=== PATIENT | female | born 1940 | race Caucasian/White ===

== ENCOUNTER 2021-01-11 00:53 | Emergency (ER) | payer MEDICARE, SELFPAY ==
--- NOTE | ~2021-01-11 | XR_ITS ---
EXAMINATION: XR CHEST CLINICAL INFORMATION: Shortness of breath COMPARISON: 04/06/2020 TECHNIQUE: Frontal view of the chest was obtained. FINDINGS: Cardiac leads overlie the chest. Elevated left hemidiaphragm. Patchy opacities are seen bilaterally. No pleural effusion or pneumothorax. The cardiomediastinal silhouette is unchanged. XR/XR chest 1V IMPRESSION: Patchy bilateral opacities are nonspecific. This could be infectious or inflammatory.
[2021-01-11 00:59] VITALS: BP 106/80; PULSE 93; RESP 17; TEMP 36.8; O2SAT 95; BMI 32.9
--- NOTE | 2021-01-11 01:13 | ECG_ITS ---
Test Reason : SOB Blood Pressure : / mmHG Vent. Rate : 086 BPM Atrial Rate : 086 BPM P-R Int : 204 ms QRS Dur : 076 ms QT Int : 428 ms P-R-T Axes : 052 116 075 degrees QTc Int : 512 ms Normal sinus rhythm with sinus arrhythmia Right axis deviation Low voltage QRS Septal infarct (cited on or before 10-DEC-2019) Abnormal ECG When compared with ECG of 13-FEB-2020 09:43, No significant change was found Referred By: Generic ED Physician Electronically Signed By:Jasmeet Swartz
[2021-01-11 02:00] VITALS: BP 102/51; PULSE 74; RESP 20; TEMP 37.1; O2SAT 96
[2021-01-11 02:07] LABS: MANUAL DIFF FLAG NO
[2021-01-11 02:08] LABS: Basophils Absolute Auto 0.1 X10*3/uL (0.0-0.2); Basophils Percent Auto 0.5 % (0-2); Eosinophils Absolute Auto 0.3 X10*3/uL (0.0-0.4); Eosinophils Percent Auto 2.5 % (0-4); Hematocrit 42.9 % (37-47); Hemoglobin 12.9 g/dl (12.0-16.0); Imm Gran Abs Auto 0.03 X10*3/uL (0.00-0.03); Imm Gran Pct Auto 0.3 % (0.0-0.4); Lymphocytes Absolute Auto 2.1 X10*3/uL (1.2-4.9); Lymphocytes Percent Auto 18.8 % (20-40); Mean Corpuscular HGB Conc 30.1 g/dl (31.0-35.0); Mean Corpuscular Volume 99.8 fL (80-98); Mean Platelet Volume 10.2 fL (9.4-12.3); Monocytes Absolute Auto 0.9 X10*3/uL (0.1-1.2); Monocytes Percent Auto 8.2 % (2-11); Neutrophils Absolute Auto 7.6 X10*3/uL (2.0-8.3); Neutrophils Percent Auto 69.7 % (45-73); Platelet Count 329 X10*3/uL (160-400); Red Cell Distribution Width 14.2 % (11.0-16.0); White Blood Count 10.9 X10*3/uL (4.8-10.8)
[2021-01-11 02:18] LABS: Prothrombin Time 11.7 SEC (10.8-13.0)
--- NOTE | 2021-01-11 02:46 | ED_ITS ---
HPI - SOB/Dyspnea General Chief Complaint: Dyspnea Stated Complaint: sob cough Time Seen by Provider: 01/11/21 01:28 Source: patient and family (Daughter) Mode of arrival: EMS History of Present Illness HPI Narrative: Is an 80-year-old female with history of COPD and is brought in by ambulance at the concern of her daughter for increasing shortness of breath and cough over the past 2 weeks, and patient states she remains an everyday smok er on home oxygen at 2 L. The daughter was concerned for having to increase the oxygen from 2-3 L though the patient denies any significant shortness of breath, chest pain/palpitations, GI symptoms, or symptoms. She states he has been in her usual state of health and denies any current complaints. Related Data Previous Rx's Medication Instructions Recorded azithromycin 250 mg PO DAILY 4 Days #4 tab 01/11/21 prednisone 40 mg PO DAILY 4 Days #8 tab 01/11/21 Allergies Allergy/AdvReac Type Severity Reaction Status Date / Time umeclidinium Allergy Unknown UNKOWN Verified 01/11/21 01:05 [From INCRUSE ELLIPTA] Review of Systems Review of Systems: Pertinent positives and negatives as stated in HPI 10 point review systems is otherwise negative. [facility] Past Medical History Source: nursing notes reviewed Medical History Acute bronchitis CHF (congestive heart failure) COPD (chronic obstructive pulmonary disease) HTN (hypertension) Social History Social History Alcohol intake: never Smoking Status: Current every day smoker Smoked in Last 30 Days: Yes Use of substances other than those prescribed or required for medical reasons: No Advance Directives: No Physical Exam Vital Signs: Vital Signs: Last Vital Signs Temp 98.7 F 01/11/21 02:00 Pulse 83 01/11/21 05:46 Resp 16 01/11/21 05:46 BP 106/49 L 01/11/21 05:46 Pulse Ox 96 01/11/21 05:46 Body Mass Index 32.9 VITAL SIGNS: Reviewed. GENERAL: Cachectic, chronically ill, in no acute distress. HEAD: Normocephalic/atraumatic EYES: PERRLA, EOMI OROPHARYNX: no oral lesions noted, posterior pharynx clear, dry mucosa NECK: Supple, no adenopathy LUNGS: Normal breath sounds. 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 ABDOMEN: Soft, non-tender, non-distended with bowel sounds. SKIN: Inspection of the skin reveals no rashes NEUROLOGIC: Alert and oriented x 4. Strength and sensation to light touch were grossly intact x 4. Course Course Course Narrative: This is an 80-year-old female with history and clinical presentation suggestive of possible CHF, COPD, viral, pneumonia etiologies for presenting symptoms but doubt cardiac ischemia. Patient received initial dose of azithromycin as well as oral steroids. On review of all investigations there is a very slight leukocytosis without evidence on chest x-ray of infiltrate, but CXR read as patchy bilateral infiltrates. Ironically, the COVID-19 is negative but suspect this is simply a testing in consistency. However, patient is not noted to be tachypneic, or short of breath on home prescribed oxygen and a walk test did not demonstrate any hypoxic events and patient was able to ambulate without clinical evidence of shortness of breath. There is no objective or clinical evidence for CHF and patient was provided with 0.5 L of normal saline IV fluids for evidence clinical mild dehydration. Of note serial troponins although showing a delta 50% increase this was discussed with Cardiology in the context of patient being completely asymptomatic and the absence of EKG changes in conjunction with underlying medical conditions such as COPD and suspected COVID-19. Patient is otherwise stable for discharge to home and recommendations follow up with the primary care provider within the next 2-3 days.. MDM - SOB/Dyspnea Lab Data Result diagrams: 01/11/21 02:03 01/11/21 02:53 Labs: Lab Results 01/11/21 01/11/21 01/11/21 Range/Units 02:02 02:02 02:03 WBC 10.9 H (4.8-10.8) X10*3/uL RBC 4.30 (4.20-5.50) X10*6/uL Hgb 12.9 (12.0-16.0) g/dl Hct 42.9 (37-47) % MCV 99.8 H (80-98) fL MCH 30.0 (27.0-33.0) pg MCHC 30.1 L (31.0-35.0) g/dl RDW 14.2 (11.0-16.0) % Plt Count 329 (160-400) X10*3/uL MPV 10.2 (9.4-12.3) fL Immature Gran % (Auto) 0.3 (0.0-0.4) % Neut % (Auto) 69.7 (45-73) % Lymph % (Auto) 18.8 L (20-40) % [place] % (Auto) 8.2 (2-11) % Eos % (Auto) 2.5 (0-4) % Baso % (Auto) 0.5 (0-2) % Lymph # (Auto) 2.1 (1.2-4.9) X10*3/uL [place] # (Auto) 0.9 (0.1-1.2) X10*3/uL Eos # (Auto) 0.3 (0.0-0.4) X10*3/uL Baso # (Auto) 0.1 (0.0-0.2) X10*3/uL Abs Immat Gran (auto) 0.03 (0.00-0.03) X10*3/uL Absolute Neuts (auto) 7.6 (2.0-8.3) X10*3/uL Absolute Nucleated RBC 0.000 (0.0-0.012) X10*3/uL Nucleated RBC % (auto) 0.0 (0.0-0.2) /100WBC PT (10.8-13.0) SEC INR (0.9-1.1) Sodium Potassium Chloride Carbon Dioxide Anion Gap BUN Creatinine Estim Creat Clear Calc Estimated GFR Random Glucose Calcium Total Bilirubin AST ALT Alkaline Phosphatase Troponin I High Sens 33.2 H (<3.5-17.0) ng/L B-Natriuretic Peptide 70 (<100) pg/mL Total Protein Albumin Lipase Coronavirus (PCR) NEGATIVE (Negative) Influenza Type A (PCR) NEGATIVE (Negative) Influenza Type B (PCR) NEGATIVE (Negative) RSV RNA Qual (PCR) NEGATIVE (Negative) 01/11/21 01/11/21 01/11/21 Range/Units 02:03 02:53 02:53 WBC (4.8-10.8) X10*3/uL RBC (4.20-5.50) X10*6/uL Hgb (12.0-16.0) g/dl Hct (37-47) % MCV (80-98) fL MCH (27.0-33.0) pg MCHC (31.0-35.0) g/dl RDW (11.0-16.0) % Plt Count (160-400) X10*3/uL MPV (9.4-12.3) fL Immature Gran % (Auto) (0.0-0.4) % Neut % (Auto) (45-73) % Lymph % (Auto) (20-40) % [place] % (Auto) (2-11) % Eos % (Auto) (0-4) % Baso % (Auto) (0-2) % Lymph # (Auto) (1.2-4.9) X10*3/uL [place] # (Auto) (0.1-1.2) X10*3/uL Eos # (Auto) (0.0-0.4) X10*3/uL Baso # (Auto) (0.0-0.2) X10*3/uL Abs Immat Gran (auto) (0.00-0.03) X10*3/uL Absolute Neuts (auto) (2.0-8.3) X10*3/uL Absolute Nucleated RBC (0.0-0.012) X10*3/uL Nucleated RBC % (auto) (0.0-0.2) /100WBC PT 11.7 (10.8-13.0) SEC INR 1.0 (0.9-1.1) Sodium Cancelled 142 Potassium Cancelled 3.7 Chloride Cancelled 99 Carbon Dioxide Cancelled 34 H Anion Gap Cancelled 13 BUN Cancelled 18 H Creatinine Cancelled 1.34 Estim Creat Clear Calc Cancelled 39.7 Estimated GFR Cancelled 38 Random Glucose Cancelled 117 H Calcium Cancelled 8.6 Total Bilirubin Cancelled 0.5 AST Cancelled 9 ALT Cancelled < 6 Alkaline Phosphatase Cancelled 82 Troponin I High Sens (<3.5-17.0) ng/L B-Natriuretic Peptide (<100) pg/mL Total Protein Cancelled 6.4 L Albumin Cancelled 3.5 Lipase Cancelled 24 Coronavirus (PCR) (Negative) Influenza Type A (PCR) (Negative) Influenza Type B (PCR) (Negative) RSV RNA Qual (PCR) (Negative) 01/11/21 Range/Units 05:04 WBC (4.8-10.8) X10*3/uL RBC (4.20-5.50) X10*6/uL Hgb (12.0-16.0) g/dl Hct (37-47) % MCV (80-98) fL MCH (27.0-33.0) pg MCHC (31.0-35.0) g/dl RDW (11.0-16.0) % Plt Count (160-400) X10*3/uL MPV (9.4-12.3) fL Immature Gran % (Auto) (0.0-0.4) % Neut % (Auto) (45-73) % Lymph % (Auto) (20-40) % [place] % (Auto) (2-11) % Eos % (Auto) (0-4) % Baso % (Auto) (0-2) % Lymph # (Auto) (1.2-4.9) X10*3/uL [place] # (Auto) (0.1-1.2) X10*3/uL Eos # (Auto) (0.0-0.4) X10*3/uL Baso # (Auto) (0.0-0.2) X10*3/uL Abs Immat Gran (auto) (0.00-0.03) X10*3/uL Absolute Neuts (auto) (2.0-8.3) X10*3/uL Absolute Nucleated RBC (0.0-0.012) X10*3/uL Nucleated RBC % (auto) (0.0-0.2) /100WBC PT (10.8-13.0) SEC INR (0.9-1.1) Sodium Potassium Chloride Carbon Dioxide Anion Gap BUN Creatinine Estim Creat Clear Calc Estimated GFR Random Glucose Calcium Total Bilirubin AST ALT Alkaline Phosphatase Troponin I High Sens 51.0 H D (<3.5-17.0) ng/L B-Natriuretic Peptide (<100) pg/mL Total Protein Albumin Lipase Coronavirus (PCR) (Negative) Influenza Type A (PCR) (Negative) Influenza Type B (PCR) (Negative) RSV RNA Qual (PCR) (Negative) ECG Data Attestation: I personally reviewed and interpreted this ECG as follows: Prior ECG tracings: available for review (02/13/2020 no acute changes on comparison) Interpretation: Normal sinus rhythm, HR-86, no evidence of acute ischemia, QRS within normal limits Discharge Plan Discharge Clinical Impression: COPD with acute bronchitis Patient Disposition: Home, Self-Care Instructions: COPD (Chronic Obstructive Pulmonary Disease) (ED), Viral Syndrome (ED) Additional Instructions: 1. Please resume all home medications as prescribed. 2. Recommend using [id number] cough suppressant medications as directed on the outside packaging. In addition, may use [id number] Tylenol and/or ibuprofen as directed only outside packaging. 3. Please follow-up with patient's primary care provider within the next 2-3 days for re-evaluation. Do not hesitate to return to the emergency department should you experience any acute worsening of your symptoms. Prescriptions: New prednisone 20 mg tablet 40 mg PO DAILY 4 Days Qty: 8 RF: 0 azithromycin 250 mg tablet 250 mg PO DAILY 4 Days Qty: 4 RF: 0 Referrals: Physician,Unknown [Primary Care Provider] - 2 days
[2021-01-11 02:47] LABS: Influenza A PCR NEGATIVE (Negative); Influenza B PCR NEGATIVE (Negative); Resp Syncy Virus RNA Qual PCR NEGATIVE (Negative); SARS COV2 PCR INHOUSE NEGATIVE (Negative); Troponin-I High Sensitivity 33.2 ng/L (<3.5-17.0)
[2021-01-11 03:04] VITALS: BP 115/49; PULSE 79; RESP 18; O2SAT 97
[2021-01-11 03:27] LABS: Alanine Aminotransferase < 6 U/L (0-31); Albumin Level 3.5 g/dL (3.5-5.0); Alkaline Phosphatase 82 U/L (39-117); Anion Gap 13 (12-20); Aspartate Amino Transferase 9 U/L (5-31); Bilirubin Total 0.5 mg/dL (0.0-1.0); Blood Urea Nitrogen 18 mg/dL (9-16); Calcium 8.6 mg/dL (8.4-10.2); Carbon Dioxide 34 mmol/L (22-29); Chloride 99 mmol/L (96-108); Creatinine Clr Calc Pharmacy 39.7; Estimated Glomerular Filt Rate 38; Glucose Random 117 mg/dL (60-115); Lipase 24 U/L (8-78); Potassium 3.7 mmol/L (3.3-5.1); Sodium 142 mmol/L (135-145); Total Protein 6.4 g/dL (6.5-8.0)
--- NOTE | 2021-01-11 03:46 | PC.NURSE ---
patient o2 via nasal cannula is 2l which patient wears at home. patient doing well and o2 sat is 98% with non productive cough present at times.
[2021-01-11] MEDS: 0.9 % Sodium Chloride 500 ML 999 ML IV (03:58)
[2021-01-11 04:00] VITALS: BP 106/66; PULSE 62; RESP 16; O2SAT 99
[2021-01-11 04:12] LABS: B Type Natriuretic Peptide 70 pg/mL (<100)
[2021-01-11] MEDS: predniSONE 10 MG TABLET 50 MG PO (05:44)
[2021-01-11] MEDS: Azithromycin 500 MG TABLET PO (05:44)
[2021-01-11 05:46] VITALS: BP 106/49; PULSE 83; RESP 16; O2SAT 96
--- NOTE | 2021-01-11 06:43 | PC.NURSE ---
PROVIDER CONTACTING CARDIOLOGY, WHO IS AWARE OF PATIENT AND THAT THE PLAN OF CARE WILL REMAIN PATIENT HEADING HOME. CONTACTING PATIENTS DAUGHTER FOR A RIDE HOME, EXPLAINING PLAN OF CARE AND DISCHARGE TEACHING TO DAUGHTER. PATIENT VERBALIZED UNDERSTANDING OF D/C INSTRUCTIONS WELL. URINE SAMPLE WAS ATTEMPTED TO BE OBTAINED. PATIENT UNABLE TO GIVE A SAMPLE AT THIS TIME, PROVIDER AWARE.
== END 2021-01-11 07:53 | disposition home or self-care (01) ==
PROVIDERS: Emergency Provider Student in an Organized Health Care Education/Training Program
DX: J44.9 Chronic obstructive pulmonary disease, unspecified (principal); Z99.81 Dependence on supplemental oxygen; Z20.822 Contact with and (suspected) exposure to COVID-19; F17.210 Nicotine dependence, cigarettes, uncomplicated; I11.0 Hypertensive heart disease with heart failure; I50.9 Heart failure, unspecified
CPT/HCPCS: 0241U; 36415; 71045; 80053; 83690; 83880; 84484; 85025; 85610; 93005; 99284

== ENCOUNTER 2021-04-24 07:25 | Emergency (ER) | payer MEDICARE, SELFPAY ==
--- NOTE | ~2021-04-24 | CT_ITS ---
EXAMINATION: CT BRAIN AND CT CERVICAL SPINE WITHOUT CONTRAST. CLINICAL INFORMATION: Fall. COMPARISON: None TECHNIQUE: 2 mm thin axial and reformatted 2 mm thin sagittal and coronal images of brain were obtained without contrast. Axial 3 mm thin and reformatted 2 mm thin sagittal and coronal images of cervical spine were obtained without contrast. DLP 1443 FINDINGS: Brain: There is significant motion artifact. There is no acute intra-axial, extra-axial bleed, masses, collection or midline shift. There is no acute infarction in evolution. The lateral ventricles are symmetrical in size and configuration with mild enlargement. The tripathi to white matter differentiation is maintained well. Bone windows reveal no calvarial abnormality. Bilateral paranasal sinuses and mastoid air cells are well aerated. Cervical spine: There is normal cervical lordosis. The vertebral heights, alignment and disc heights are normal. There is no visible acute fracture, dislocation or subluxation seen. The prevertebral and paravertebral soft tissues are normal. The craniovertebral junction and the C1-C2 alignment is normal. CT/CT head/brain wo con IMPRESSION: No acute intracranial process seen. No acute fracture, dislocation or subluxation cervical spine.
--- NOTE | ~2021-04-24 | CT_ITS ---
EXAMINATION: CT BRAIN AND CT CERVICAL SPINE WITHOUT CONTRAST. CLINICAL INFORMATION: Fall. COMPARISON: None TECHNIQUE: 2 mm thin axial and reformatted 2 mm thin sagittal and coronal images of brain were obtained without contrast. Axial 3 mm thin and reformatted 2 mm thin sagittal and coronal images of cervical spine were obtained without contrast. DLP 1443 FINDINGS: Brain: There is significant motion artifact. There is no acute intra-axial, extra-axial bleed, masses, collection or midline shift. There is no acute infarction in evolution. The lateral ventricles are symmetrical in size and configuration with mild enlargement. The tripathi to white matter differentiation is maintained well. Bone windows reveal no calvarial abnormality. Bilateral paranasal sinuses and mastoid air cells are well aerated. Cervical spine: There is normal cervical lordosis. The vertebral heights, alignment and disc heights are normal. There is no visible acute fracture, dislocation or subluxation seen. The prevertebral and paravertebral soft tissues are normal. The craniovertebral junction and the C1-C2 alignment is normal. CT/CT cervical spine wo con IMPRESSION: No acute intracranial process seen. No acute fracture, dislocation or subluxation cervical spine.
[2021-04-24 07:39] VITALS: BP 128/70; BP 131/60; PULSE 78; PULSE 84; RESP 16; TEMP 36.8; O2SAT 4; O2SAT 98; BMI 28.3
--- NOTE | 2021-04-24 08:21 | ED.GENADULT ---
HPI - General Adult General Chief complaint: Fall Stated complaint: Head pain from fall Time Seen by Provider: 04/24/21 08:28 Source: patient Mode of arrival: ambulatory Limitations: no limitations History of Present Illness HPI narrative: Patient presents to the ED for fall. Patient stated she was walking to the bathroom with her walker and lost her balance and fell. Patient denies loss of consciousness. Patient is not any blood thinner. Patient denies having any chest pain, abdominal pain, headache, or dizziness before falling. Patient states she just loss her footing/lost balance. Patient states slight headache. Patient denies any chest pain, abdominal pain, pain in extremities, back pain, neck pain, dizziness, nausea, or vomiting. Patient states she did not pass out. Related Data Previous Rx's Medication Instructions Recorded azithromycin 250 mg PO DAILY 4 Days #4 tab 01/11/21 prednisone 40 mg PO DAILY 4 Days #8 tab 01/11/21 Allergies Allergy/AdvReac Type Severity Reaction Status Date / Time umeclidinium Allergy Unknown UNKOWN Verified 01/11/21 01:05 [From INCRUSE ELLIPTA] Review of Systems Review of Systems: Yes all other systems are reviewed and are negative Constitutional: Constitutional: Reports as per HPI, Reports no additional constitutional complaints and Reports headache(s) Eyes: Eyes: Reports as per HPI and Reports no additional eye complaints ENT: Reports system reviewed and no additional complaints, except as documented, Reports as per HPI and Reports headache(s) Cardiovascular: Cardiovascular: Reports as per HPI and Reports no additional cardiovascular complaints Respiratory: Respiratory: Reports as per HPI and Reports no additional respiratory complaints Gastrointestinal: Gastrointestinal: Reports as per HPI and Reports no additional gastrointestinal complaints Genitourinary: Genitourinary: Reports no additional female genitourinary complaints and Reports as per HPI Musculoskeletal: Musculoskeletal: Reports no additional musculoskeletal complaints and Reports as per HPI Neurologic: Reports system reviewed and no additional complaints, except as documented, Reports as per HPI and Reports headache(s) Psychiatric: Psychiatric: Reports no additional psychiatric complaints and Reports as per HPI PMF Past Medical History Medical History Acute bronchitis CHF (congestive heart failure) COPD (chronic obstructive pulmonary disease) HTN (hypertension) Social History Social History Alcohol intake: never Patient Tobacco Use Status: Never used Tobacco Use of substances other than those prescribed or required for medical reasons: No Advance Directives: Yes Advance Directives Information Provided: No Advance Directives on File: No Physical Exam Vital Signs: Vital Signs: Last Vital Signs Temp 98.1 F 04/24/21 10:31 Pulse 82 04/24/21 10:31 Resp 16 04/24/21 10:31 BP 128/75 04/24/21 10:31 Pulse Ox 95 04/24/21 10:31 Body Mass Index 28.3 Const: General: cooperative, healthy appearing, comfortable, no acute distress, well developed, alert and awake Orientation/consciousness: patient oriented x3 HENMT: Other: Mild right temporal tenderness/small hematoma. Head: Yes normal to inspection, Yes No palpable skull fracture present, Yes normocephalic, Yes atraumatic, No abrasion, No Acrocyanosis present, No Burgos's sign, No contusion, No cranial bruits, No hematoma, No laceration, No occipital foramen tenderness, No palpable skull fracture, No raccoon eyes, No scalp lesion, No scalp tenderness, No Temporal artery tenderness present and No periorbital ecchymosis Eyes: General: appearance normal, both eyes and all related structures Neck: Neck: Yes normal visual inspection, Yes full ROM, Yes no lymphadenopathy, Yes no meningeal signs, Yes trachea midline, Yes supple and No tender Chest: Other: Negative ecchymosis Chest palpation & inspection: normal inspection of the chest and normal palpation of entire chest wall Resp: Effort & Inspection: normal respiratory effort and able to speak in complete sentences Cardio: Jugular venous distension: no JVD Heart sounds: S1 normal heart sound present and S2 normal heart sound present GI: Inspection: Yes normal to inspection and No abdominal wall ecchymosis Palpation (GI): Soft to palpation, not firm, nontender, no guarding and not rigid : General: No CVA tenderness and Yes no CVA tenderness Back/Spine/Pelvis: Back: no CVA tenderness, No CVA tenderness and No back tenderness Skin: General skin exam: no rashes or lesions noted and elasticity normal Neuro: General: patient oriented x3, gait normal, no meningeal signs and CN's II-XI intact bilaterally Cranial nerves: Yes CN's II-XII intact bilaterally Extrem: General: Yes normal to inspection and Yes full ROM Psych: Appearance: grossly normal, well kempt and not disheveled Course Course Course Narrative: Patient neck not able to fit in a hard collar. Patient placed in soft collar make shift with towel around neck. Due to patient states she lost her balance will do cardiac workup including labs. Patient able to ambulate with walker at home which is her baseline Reevaluation(s) Reevaluation #1: Patient labs normal. EKG negative STEMI. First troponin is negative. Rest of labs are normal. Reevaluation #2: Patient's 2nd troponin came back negative. Patient head CT and cervical scan came back negative for any fracture of the scalp, brain bleed, or cervical spine fracture. I saw patient walk on her own with walker. Patient discharged back home into daughter's care. Medical Decision Making MDM Narrative Medical decision making narrative: Fall. Lab Data Result diagrams: 04/24/21 08:32 04/24/21 08:32 Labs: Lab Results 04/24/21 04/24/21 04/24/21 Range/Units 08:32 08:32 08:32 WBC 8.5 (4.8-10.8) X10*3/uL RBC 3.58 L (4.20-5.50) X10*6/uL Hgb 11.0 L (12.0-16.0) g/dl Hct 35.9 L (37-47) % MCV 100.3 H (80-98) fL MCH 30.7 (27.0-33.0) pg MCHC 30.6 L (31.0-35.0) g/dl RDW 14.0 (11.0-16.0) % Plt Count 250 (160-400) X10*3/uL MPV 10.1 (9.4-12.3) fL Immature Gran % (Auto) 0.4 (0.0-0.4) % Neut % (Auto) 64.8 (45-73) % Lymph % (Auto) 22.2 (20-40) % [place] % (Auto) 8.3 (2-11) % Eos % (Auto) 3.6 (0-4) % Baso % (Auto) 0.7 (0-2) % Lymph # (Auto) 1.9 (1.2-4.9) X10*3/uL [place] # (Auto) 0.7 (0.1-1.2) X10*3/uL Eos # (Auto) 0.3 (0.0-0.4) X10*3/uL Baso # (Auto) 0.1 (0.0-0.2) X10*3/uL Abs Immat Gran (auto) 0.03 (0.00-0.03) X10*3/uL Absolute Neuts (auto) 5.5 (2.0-8.3) X10*3/uL Absolute Nucleated RBC 0.000 (0.0-0.012) X10*3/uL Nucleated RBC % (auto) 0.0 (0.0-0.2) /100WBC PT 11.7 (10.8-13.0) SEC INR 1.0 (0.9-1.1) APTT 29.9 (24.1-38.0) SEC Sodium 143 (135-145) mmol/L Potassium 3.5 (3.3-5.1) mmol/L Chloride 97 (96-108) mmol/L Carbon Dioxide 39 H (22-29) mmol/L Anion Gap 11 L (12-20) BUN 17 H (9-16) mg/dL Creatinine 1.30 (0.5-1.4) mg/dL Estim Creat Clear Calc 37.4 Estimated GFR 39 Random Glucose 85 (60-115) mg/dL Calcium 8.8 (8.4-10.2) mg/dL Total Bilirubin 0.3 (0.0-1.0) mg/dL AST 7 (5-31) U/L ALT < 6 (0-31) U/L Alkaline Phosphatase 84 (39-117) U/L Troponin I High Sens (<3.5-17.0) ng/L Total Protein 5.9 L (6.5-8.0) g/dL Albumin 3.4 L (3.5-5.0) g/dL 04/24/21 04/24/21 Range/Units 08:32 11:32 WBC (4.8-10.8) X10*3/uL RBC (4.20-5.50) X10*6/uL Hgb (12.0-16.0) g/dl Hct (37-47) % MCV (80-98) fL MCH (27.0-33.0) pg MCHC (31.0-35.0) g/dl RDW (11.0-16.0) % Plt Count (160-400) X10*3/uL MPV (9.4-12.3) fL Immature Gran % (Auto) (0.0-0.4) % Neut % (Auto) (45-73) % Lymph % (Auto) (20-40) % [place] % (Auto) (2-11) % Eos % (Auto) (0-4) % Baso % (Auto) (0-2) % Lymph # (Auto) (1.2-4.9) X10*3/uL [place] # (Auto) (0.1-1.2) X10*3/uL Eos # (Auto) (0.0-0.4) X10*3/uL Baso # (Auto) (0.0-0.2) X10*3/uL Abs Immat Gran (auto) (0.00-0.03) X10*3/uL Absolute Neuts (auto) (2.0-8.3) X10*3/uL Absolute Nucleated RBC (0.0-0.012) X10*3/uL Nucleated RBC % (auto) (0.0-0.2) /100WBC PT (10.8-13.0) SEC INR (0.9-1.1) APTT (24.1-38.0) SEC Sodium (135-145) mmol/L Potassium (3.3-5.1) mmol/L Chloride (96-108) mmol/L Carbon Dioxide (22-29) mmol/L Anion Gap (12-20) BUN (9-16) mg/dL Creatinine (0.5-1.4) mg/dL Estim Creat Clear Calc Estimated GFR Random Glucose (60-115) mg/dL Calcium (8.4-10.2) mg/dL Total Bilirubin (0.0-1.0) mg/dL AST (5-31) U/L ALT (0-31) U/L Alkaline Phosphatase (39-117) U/L Troponin I High Sens < 3.5 < 3.5 (<3.5-17.0) ng/L Total Protein (6.5-8.0) g/dL Albumin (3.5-5.0) g/dL ECG Data Interpretation: Sinus to be 1st degree block. Your interval 238. QRS 88. QTC 469. Negative STEMI Discharge Plan Discharge Clinical Impression: Fall Patient Disposition: Home, Self-Care Instructions: Head Injury (ED), Fall Prevention (ED) Additional Instructions: Return to ED immediately for any headache, dizziness, nausea, vomiting, chest pain, shortness of breath, abdominal pain, vomiting from rectum, blood in urine, vomiting blood, or any other concerning symptoms. EKG came back normal. Blood test came back negative for heart attack. Head CT and cervical spine CT came back negative for brain bleed, skull fracture, or neck fracture. Please follow-up with your PCP Prescriptions: No Action prednisone 20 mg tablet 40 mg PO DAILY 4 Days Qty: 8 RF: 0 azithromycin 250 mg tablet 250 mg PO DAILY 4 Days Qty: 4 RF: 0 Interventions: ED Discharge Assessment Last Done: 04/24/21 14:24 Discharge Date/Time: 04/24/21 14:25 Print Language: Canadian
--- NOTE | 2021-04-24 08:28 | ECG_ITS ---
Test Reason : FALL Blood Pressure : / mmHG Vent. Rate : 071 BPM Atrial Rate : 071 BPM P-R Int : 238 ms QRS Dur : 088 ms QT Int : 432 ms P-R-T Axes : 072 107 063 degrees QTc Int : 469 ms Sinus rhythm with 1st degree A-V block Rightward axis Septal infarct (cited on or before 10-DEC-2019) Abnormal ECG When compared with ECG of 11-JAN-2021 01:20, MA interval has increased Referred By: Juwan Ayala Electronically Signed By:AMRITA LUNA
[2021-04-24 08:37] LABS: MANUAL DIFF FLAG NO
[2021-04-24 08:40] VITALS: BP 114/63; PULSE 68; RESP 16; TEMP 36.8; O2SAT 98
[2021-04-24 08:41] LABS: Basophils Absolute Auto 0.1 X10*3/uL (0.0-0.2); Basophils Percent Auto 0.7 % (0-2); Eosinophils Absolute Auto 0.3 X10*3/uL (0.0-0.4); Eosinophils Percent Auto 3.6 % (0-4); Hematocrit 35.9 % (37-47); Imm Gran Abs Auto 0.03 X10*3/uL (0.00-0.03); Imm Gran Pct Auto 0.4 % (0.0-0.4); Lymphocytes Absolute Auto 1.9 X10*3/uL (1.2-4.9); Lymphocytes Percent Auto 22.2 % (20-40); Mean Corpuscular HGB Conc 30.6 g/dl (31.0-35.0); Mean Corpuscular Hemoglobin 30.7 pg (27.0-33.0); Mean Corpuscular Volume 100.3 fL (80-98); Mean Platelet Volume 10.1 fL (9.4-12.3); Monocytes Absolute Auto 0.7 X10*3/uL (0.1-1.2); Monocytes Percent Auto 8.3 % (2-11); Neutrophils Absolute Auto 5.5 X10*3/uL (2.0-8.3); Neutrophils Percent Auto 64.8 % (45-73); Platelet Count 250 X10*3/uL (160-400); Red Blood Count 3.58 X10*6/uL (4.20-5.50); White Blood Count 8.5 X10*3/uL (4.8-10.8)
[2021-04-24 08:49] LABS: Prothrombin Time 11.7 SEC (10.8-13.0)
[2021-04-24 08:51] LABS: Partial Thromboplastin Time 29.9 SEC (24.1-38.0)
[2021-04-24 09:41] LABS: Alanine Aminotransferase < 6 U/L (0-31); Albumin Level 3.4 g/dL (3.5-5.0); Alkaline Phosphatase 84 U/L (39-117); Anion Gap 11 (12-20); Aspartate Amino Transferase 7 U/L (5-31); Bilirubin Total 0.3 mg/dL (0.0-1.0); Blood Urea Nitrogen 17 mg/dL (9-16); Calcium 8.8 mg/dL (8.4-10.2); Carbon Dioxide 39 mmol/L (22-29); Chloride 97 mmol/L (96-108); Creatinine Clr Calc Pharmacy 37.4; Estimated Glomerular Filt Rate 39; Glucose Random 85 mg/dL (60-115); Potassium 3.5 mmol/L (3.3-5.1); Sodium 143 mmol/L (135-145); Total Protein 5.9 g/dL (6.5-8.0)
[2021-04-24 09:46] LABS: Troponin-I High Sensitivity < 3.5 ng/L (<3.5-17.0)
[2021-04-24 10:31] VITALS: BP 128/75; PULSE 82; RESP 16; TEMP 36.7; O2SAT 95
--- NOTE | 2021-04-24 11:52 | PC.NURSE ---
Pt ambulatory with walker, one staff assist to stand and transition to walker. Pt fatigued quickly but was slow/steady on feet on flat surface. Daughter at bedside states she lives with patient and that transition into truck and home is difficult due to multiple steps and daughter's right wrist injury with splint. Chair van has been used for transport to/from PCP at times and will be considered at discharge from ED.
[2021-04-24 12:01] LABS: Troponin-I High Sensitivity < 3.5 ng/L (<3.5-17.0)
== END 2021-04-24 14:25 | disposition home or self-care (01) ==
PROVIDERS: Physician Assistant; Emergency Provider Emergency Medicine Emergency Medical Services
DX: S00.83XA Contusion of other part of head, initial encounter (principal); W01.0XXA Fall on same level from slipping, tripping and stumbling without subsequent striking against object, initial encounter; Y93.01 Activity, walking, marching and hiking; Y92.019 Unspecified place in single-family (private) house as the place of occurrence of the external cause; Y99.9 Unspecified external cause status; I11.0 Hypertensive heart disease with heart failure; I50.9 Heart failure, unspecified; J44.9 Chronic obstructive pulmonary disease, unspecified
CPT/HCPCS: 36415; 70450; 72125; 80053; 84484; 85025; 85610; 85730; 93005; 99284

== ENCOUNTER 2021-08-28 05:02 | Inpatient (IN) | payer MEDICARE, SELFPAY ==
[2021-08-28] VITALS (10 sets, daily range): BP systolic 100–123; BP diastolic 51–81; PULSE 65–96; RESP 15–18; TEMP 36.6–37; O2SAT 93–98; BMI 25.4
--- NOTE | ~2021-08-28 | XR_ITS ---
EXAMINATION: XR CHEST CLINICAL INFORMATION: Cough and weakness COMPARISON: 01/11/2021 TECHNIQUE: Frontal view of the chest was obtained. FINDINGS: Lung volumes are low. Mild elevation of the left hemidiaphragm persists. Left basilar airspace opacity noted. No pleural effusion or pneumothorax. The cardiomediastinal silhouette is unchanged, with a calcified aorta. No acute osseous abnormality. XR/XR chest 1V IMPRESSION: Increased left basilar opacity could represent pneumonia. Follow-up to resolution.
--- NOTE | ~2021-08-28 | CT_ITS ---
EXAMINATION: CT CHEST WITHOUT CONTRAST CLINICAL INFORMATION: Status post fall one week ago with pain and cough. COMPARISON: 02/13/[address] scan. TECHNIQUE: Multidetector volumetric CT imaging of the chest was done. Axial MIP volume rendering provided. Sagittal and coronal reformatted images were obtained. This CT examination was performed using dose optimization techniques as appropriate, variously including the following: *Automated exposure control *Adjustment of mA and/or kV according to patient size (this includes techniques or standardized protocols for targeted exams where dose is matched to indication/reason for exam; i.e. extremities or head) *Use of iterative reconstruction technique DLP: 373 mGy-cm FINDINGS: LUNGS/PLEURA/AIRWAYS: Mild upper lobe predominant centrilobular and paraseptal emphysema is seen. Mild biapical scarring. Scattered nodular opacities are seen many of which demonstrate a tree-in-bud pattern. More focal consolidation is seen peripherally in the left lower lobe at the bases. A area representative nodule measures 0.5 cm posterolaterally in the right lower lobe (image 176, series 6). Scattered mild bronchiectasis is seen most pronounced in the lower lobes, left greater than right with bronchial wall thickening. There are no pleural effusions. Mild mucus is seen within the several segmental and subsegmental branches in the right middle lobe and lung bases, left greater than right. MEDIASTINUM: The visualized thyroid gland is unremarkable. Qion-nh-rnsjenku atherosclerosis in the thoracic aorta without significant dilatation. Mild coronary artery calcifications. No pericardial effusion. Small hiatal hernia. AXILLA: No lymphadenopathy. UPPER ABDOMEN: Status post cholecystectomy. Noncalcified, fluid attenuation left upper pole cyst measuring 5.0 cm (image 60, series 8). OSSEOUS STRUCTURES: Mild thoracolumbar dextroscoliosis and mild to moderate multilevel degenerative changes without suspicious abnormality. CT/CT chest wo con IMPRESSION: 1. Bilateral nodular infiltrates most pronounced in the lower lobes, left greater than right, with bronchiectasis and bronchial wall thickening. Scattered segmental and subsegmental airway mucus is seen without obstruction. These findings represent interval worsening from the previous study and likely represent an acute on chronic infectious/inflammatory process. Short-term monitoring with chest radiographs is recommended as clinically indicated.
--- NOTE | 2021-08-28 05:22 | ECG_ITS ---
Test Reason : WEAKNESS Blood Pressure : / mmHG Vent. 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
--- NOTE | 2021-08-28 06:07 | ED.WEAKNESS ---
HPI - Weakness General Chief complaint: Weakness Stated complaint: fall/weakness Time Seen by Provider: 08/28/21 05:22 Source: patient and EMS Mode of arrival: EMS History of Present Illness HPI Narrative: 81-year-old female with significant past medical history of COPD is brought in by EMS for progressive weakness since her fall 1 week ago. Patient states she has had cough but denies any sore throat and states that she has had increased shortness of breath without chest pain or palpitations. Otherwise she denies any GI symptoms and states that she has had increased urinary frequency but denies any pain or burning. Patient has complained of back and left arm pain and lives a home with her daughter. Related Data Home Medications Medication Instructions Recorded Confirmed albuterol sulfate mg INHALATION 08/28/21 albuterol sulfate 90 mcg/actuation INHALATION 08/28/21 aerosol inhaler arformoterol 15 mcg/2 mL solution 1 vial INHALATION BID 08/28/21 for nebulization (Brovana) atorvastatin 20 mg tablet 1 tab PO DAILY 08/28/21 budesonide 0.5 mg/2 mL suspension 1 vial INHALATION BID 08/28/21 for nebulization clonazepam 0.5 mg tablet 1 tab PO TID PRN 08/28/21 gabapentin 100 mg capsule 1 cap PO TID 08/28/21 hydrocodone 5 mg-acetaminophen 325 tab PO 08/28/21 mg tablet revefenacin 175 mcg/3 mL solution 1 vial INHALATION DAILY 08/28/21 for nebulization (Yupelri) torsemide 20 mg tablet 1 tab PO BID 08/28/21 venlafaxine 75 mg capsule,extended 1 cap PO DAILY 08/28/21 release 24 hr Allergies Allergy/AdvReac Type Severity Reaction Status Date / Time umeclidinium Allergy Unknown UNKOWN Verified 01/11/21 01:05 [From INCRUSE ELLIPTA] Review of Systems Review of Systems: Pertinent positives and negatives as stated in HPI 10 point review of systems is otherwise negative. [facility] Past Medical History Source: nursing notes reviewed Medical History Acute bronchitis CHF (congestive heart failure) COPD (chronic obstructive pulmonary disease) HTN (hypertension) Social History Social History Alcohol intake: never Patient Tobacco Use Status: Never used Tobacco Use of substances other than those prescribed or required for medical reasons: No Advance Directives: No Physical Exam Vital Signs: Vital Signs: Last Vital Signs Temp 98.2 F 08/28/21 05:17 Pulse 96 08/28/21 07:42 Resp 15 08/28/21 05:17 BP 119/69 08/28/21 05:17 Pulse Ox 96 08/28/21 05:17 Oxygen Flow Rate 4 08/28/21 05:17 Body Mass Index 25.4 VITAL SIGNS: Reviewed. GENERAL: Chronically ill, cachectic, in no acute distress. HEAD: Normocephalic/atraumatic EYES: PERRLA, EOMI EARS: Ext canals without abnormality NOSE: Nares patent bilateral OROPHARYNX: no oral lesions noted, posterior pharynx clear LUNGS: Poor inspiratory effort, no wheeze, decreased breath sounds noted left greater than right with crackles, SpO2<96> on baseline nasal cannula CARDIOVASCULAR: Regular rate and rhythm without noted murmurs, no JVD or lower extremity edema. ABDOMEN: Soft, non-tender, non-distended with bowel sounds. MUSCULOSKELETAL: No tenderness, deformities, or effusions noted on gross inspection. EXTREMITIES: No cyanosis, clubbing or edema. SKIN: Inspection of the skin reveals no rashes, NEUROLOGIC: Alert and oriented x 4. Strength 3/5 bilaterally and sensation to light touch were grossly intact x 4, no pronator drift, no facial asymmetry although left lower lip noted to protrude to the left Course Course Course Narrative: 81-year-old female with history and clinical presentation suggestive pneumonia and/or possible complications secondary to fall 1 week ago and subsequent increasing deconditioning. Review of all investigations significant for COPD is well as pneumonia. Patient provided with antibiotics and case was discussed with inpatient hospitals who accepts admission. MDM - Weakness Lab Data Result diagrams: 08/28/21 05:44 08/28/21 05:44 Labs: Lab Results 08/28/21 08/28/21 08/28/21 Range/Units 05:44 05:44 05:44 WBC 13.5 H (4.8-10.8) X10*3/uL RBC 4.18 L (4.20-5.50) X10*6/uL Hgb 12.7 (12.0-16.0) g/dl Hct 42.0 (37-47) % MCV 100.5 H (80-98) fL MCH 30.4 (27.0-33.0) pg MCHC 30.2 L (31.0-35.0) g/dl RDW 14.6 (11.0-16.0) % Plt Count 260 (160-400) X10*3/uL MPV 10.6 (9.4-12.3) fL Immature Gran % (Auto) 0.4 (0.0-0.4) % Neut % (Auto) 72.6 (45-73) % Lymph % (Auto) 15.2 L (20-40) % [place] % (Auto) 9.4 (2-11) % Eos % (Auto) 2.0 (0-4) % Baso % (Auto) 0.4 (0-2) % Lymph # (Auto) 2.1 (1.2-4.9) X10*3/uL [place] # (Auto) 1.3 H (0.1-1.2) X10*3/uL Eos # (Auto) 0.3 (0.0-0.4) X10*3/uL Baso # (Auto) 0.1 (0.0-0.2) X10*3/uL Abs Immat Gran (auto) 0.05 H (0.00-0.03) X10*3/uL Absolute Neuts (auto) 9.8 H (2.0-8.3) X10*3/uL Absolute Nucleated RBC 0.000 (0.0-0.012) X10*3/uL Nucleated RBC % (auto) 0.0 (0.0-0.2) /100WBC PT (9.9-13.0) SEC INR (0.9-1.1) VBG pH (7.32-7.43) VBG pCO2 mmHg VBG pO2 mmHg VBG HCO3 (22-26) mmol/L VBG O2 Saturation % VBG Base Excess mmol/L Sodium 145 (135-145) mmol/L Potassium 3.0 L (3.3-5.1) mmol/L Chloride 92 L (96-108) mmol/L Carbon Dioxide 43 H* (22-29) mmol/L Anion Gap 13 (12-20) BUN 16 (9-16) mg/dL Creatinine 1.24 (0.5-1.4) mg/dL Estim Creat Clear Calc 36.0 Estimated GFR 42 Random Glucose 101 (60-115) mg/dL Lactic Acid (0.5-2.0) mmol/L Calcium 9.1 (8.4-10.2) mg/dL Total Bilirubin 0.5 (0.0-1.0) mg/dL AST 8 (5-31) U/L ALT < 6 (0-31) U/L Alkaline Phosphatase 107 D (39-117) U/L B-Natriuretic Peptide 49 (<100) pg/mL Total Protein 6.7 (6.5-8.0) g/dL Albumin 3.5 (3.5-5.0) g/dL COVID-19 ([facility]) (Negative) COVID-19 Clin Com 08/28/21 08/28/21 08/28/21 Range/Units 05:44 05:44 06:21 WBC (4.8-10.8) X10*3/uL RBC (4.20-5.50) X10*6/uL Hgb (12.0-16.0) g/dl Hct (37-47) % MCV (80-98) fL MCH (27.0-33.0) pg MCHC (31.0-35.0) g/dl RDW (11.0-16.0) % Plt Count (160-400) X10*3/uL MPV (9.4-12.3) fL Immature Gran % (Auto) (0.0-0.4) % Neut % (Auto) (45-73) % Lymph % (Auto) (20-40) % [place] % (Auto) (2-11) % Eos % (Auto) (0-4) % Baso % (Auto) (0-2) % Lymph # (Auto) (1.2-4.9) X10*3/uL [place] # (Auto) (0.1-1.2) X10*3/uL Eos # (Auto) (0.0-0.4) X10*3/uL Baso # (Auto) (0.0-0.2) X10*3/uL Abs Immat Gran (auto) (0.00-0.03) X10*3/uL Absolute Neuts (auto) (2.0-8.3) X10*3/uL Absolute Nucleated RBC (0.0-0.012) X10*3/uL Nucleated RBC % (auto) (0.0-0.2) /100WBC PT 11.8 (9.9-13.0) SEC INR 1.0 (0.9-1.1) VBG pH 7.41 (7.32-7.43) VBG pCO2 87 mmHg VBG pO2 38 mmHg VBG HCO3 55 H (22-26) mmol/L VBG O2 Saturation 56.0 % VBG Base Excess 24.6 mmol/L Sodium (135-145) mmol/L Potassium (3.3-5.1) mmol/L Chloride (96-108) mmol/L Carbon Dioxide (22-29) mmol/L Anion Gap (12-20) BUN (9-16) mg/dL Creatinine (0.5-1.4) mg/dL Estim Creat Clear Calc Estimated GFR Random Glucose (60-115) mg/dL Lactic Acid 1.2 (0.5-2.0) mmol/L Calcium (8.4-10.2) mg/dL Total Bilirubin (0.0-1.0) mg/dL AST (5-31) U/L ALT (0-31) U/L Alkaline Phosphatase (39-117) U/L B-Natriuretic Peptide (<100) pg/mL Total Protein (6.5-8.0) g/dL Albumin (3.5-5.0) g/dL COVID-19 ([facility]) (Negative) COVID-19 Clin Com 08/28/21 Range/Units 06:44 WBC (4.8-10.8) X10*3/uL RBC (4.20-5.50) X10*6/uL Hgb (12.0-16.0) g/dl Hct (37-47) % MCV (80-98) fL MCH (27.0-33.0) pg MCHC (31.0-35.0) g/dl RDW (11.0-16.0) % Plt Count (160-400) X10*3/uL MPV (9.4-12.3) fL Immature Gran % (Auto) (0.0-0.4) % Neut % (Auto) (45-73) % Lymph % (Auto) (20-40) % [place] % (Auto) (2-11) % Eos % (Auto) (0-4) % Baso % (Auto) (0-2) % Lymph # (Auto) (1.2-4.9) X10*3/uL [place] # (Auto) (0.1-1.2) X10*3/uL Eos # (Auto) (0.0-0.4) X10*3/uL Baso # (Auto) (0.0-0.2) X10*3/uL Abs Immat Gran (auto) (0.00-0.03) X10*3/uL Absolute Neuts (auto) (2.0-8.3) X10*3/uL Absolute Nucleated RBC (0.0-0.012) X10*3/uL Nucleated RBC % (auto) (0.0-0.2) /100WBC PT (9.9-13.0) SEC INR (0.9-1.1) VBG pH (7.32-7.43) VBG pCO2 mmHg VBG pO2 mmHg VBG HCO3 (22-26) mmol/L VBG O2 Saturation % VBG Base Excess mmol/L Sodium (135-145) mmol/L Potassium (3.3-5.1) mmol/L Chloride (96-108) mmol/L Carbon Dioxide (22-29) mmol/L Anion Gap (12-20) BUN (9-16) mg/dL Creatinine (0.5-1.4) mg/dL Estim Creat Clear Calc Estimated GFR Random Glucose (60-115) mg/dL Lactic Acid (0.5-2.0) mmol/L Calcium (8.4-10.2) mg/dL Total Bilirubin (0.0-1.0) mg/dL AST (5-31) U/L ALT (0-31) U/L Alkaline Phosphatase (39-117) U/L B-Natriuretic Peptide (<100) pg/mL Total Protein (6.5-8.0) g/dL Albumin (3.5-5.0) g/dL COVID-19 ([facility]) Negative (Negative) COVID-19 Clin Com See Note ECG Data Attestation: I personally reviewed and interpreted this ECG as follows: Prior ECG tracings: available for review (04/24/2021 no acute changes on comparison) Interpretation: Sinus rhythm with first-degree AV block, HR-79, OR-210, no STEMI, QRS/QTC are within normal limits. Discharge Plan Discharge Clinical Impression: Pneumonia, COPD exacerbation Patient Disposition: Admitted As Inpatient
[2021-08-28 06:21] LABS: Basophils Absolute Auto 0.1 X10*3/uL (0.0-0.2); Basophils Percent Auto 0.4 % (0-2); Eosinophils Absolute Auto 0.3 X10*3/uL (0.0-0.4); Hemoglobin 12.7 g/dl (12.0-16.0); Imm Gran Abs Auto 0.05 X10*3/uL (0.00-0.03); Imm Gran Pct Auto 0.4 % (0.0-0.4); Lymphocytes Absolute Auto 2.1 X10*3/uL (1.2-4.9); Lymphocytes Percent Auto 15.2 % (20-40); MANUAL DIFF FLAG NO; Mean Corpuscular HGB Conc 30.2 g/dl (31.0-35.0); Mean Corpuscular Hemoglobin 30.4 pg (27.0-33.0); Mean Corpuscular Volume 100.5 fL (80-98); Mean Platelet Volume 10.6 fL (9.4-12.3); Monocytes Absolute Auto 1.3 X10*3/uL (0.1-1.2); Monocytes Percent Auto 9.4 % (2-11); Neutrophils Absolute Auto 9.8 X10*3/uL (2.0-8.3); Neutrophils Percent Auto 72.6 % (45-73); Platelet Count 260 X10*3/uL (160-400); Red Blood Count 4.18 X10*6/uL (4.20-5.50); Red Cell Distribution Width 14.6 % (11.0-16.0); White Blood Count 13.5 X10*3/uL (4.8-10.8)
[2021-08-28 06:24] LABS: Venous Blood Gas Refer to POC result
[2021-08-28 06:26] LABS: VBG Base Excess 24.6 mmol/L; VBG HCO3 55 mmol/L (22-26); VBG pCO2 87 mmHg; VBG pH 7.41 (7.32-7.43); VBG pO2 38 mmHg
[2021-08-28 06:32] LABS: Lactic Acid 1.2 mmol/L (0.5-2.0)
[2021-08-28 06:41] LABS: B Type Natriuretic Peptide 49 pg/mL (<100); Carbon Dioxide 43 mmol/L (22-29)
[2021-08-28 06:42] LABS: Alanine Aminotransferase < 6 U/L (0-31); Albumin Level 3.5 g/dL (3.5-5.0); Alkaline Phosphatase 107 U/L (39-117); Anion Gap 13 (12-20); Aspartate Amino Transferase 8 U/L (5-31); Bilirubin Total 0.5 mg/dL (0.0-1.0); Blood Urea Nitrogen 16 mg/dL (9-16); Calcium 9.1 mg/dL (8.4-10.2); Chloride 92 mmol/L (96-108); Estimated Glomerular Filt Rate 42; Glucose Random 101 mg/dL (60-115); Sodium 145 mmol/L (135-145); Total Protein 6.7 g/dL (6.5-8.0)
[2021-08-28] MEDS: cefEPime HCl 2 GM in 0.9 % Sodium Chloride 50 ML IV (06:45)
[2021-08-28 06:47] LABS: Prothrombin Time 11.8 SEC (9.9-13.0)
[2021-08-28] MEDS: methylPREDNISolone Sod Succ 125 MG/2 ML VIAL IVPUSH (06:49)
[2021-08-28 07:26] LABS: COVID-19 Test Negative (Negative)
[2021-08-28] MEDS: Albuterol Sulfate (0.083%) 2.5 MG/3 ML VIAL.NEB 5 MG INHALE (07:39)
[2021-08-28] MEDS: cefTRIAXone sodium 1 GM in 0.9 % Sodium Chloride 50 ML IV (08:34)
[2021-08-28] MEDS: Potassium Chloride ER 20 MEQ TAB.ER.PRT 40 MEQ PO (08:35)
--- NOTE | 2021-08-28 08:55 | PHA.MEDREC ---
Pharmacy Consult ? Medication Reconciliation Pharmacy has completed the medication reconciliation. Skylar Gotti, PharmD [phone]
[2021-08-28 08:56] LABS: Procalcitonin 0.04 ng/mL
[2021-08-28] MEDS: Doxycycline Hyclate 100 MG in 0.9 % Sodium Chloride 250 ML 166.67 MG IV ×2 (09:07→20:59)
[2021-08-28 09:28] LABS: Adenovirus PCR Not Detected (Not Detect.); Bordetella parapertussis PCR Not Detected (Not Detect.); Bordetella pertussis PCR Not Detected (Not Detect.); Chlamydia pneumoniae PCR Not Detected (Not Detect.); Coronavirus 229E PCR Not Detected (Not Detect.); Coronavirus HKU1 PCR Not Detected (Not Detect.); Coronavirus NL63 PCR Not Detected (Not Detect.); Coronavirus OC43 PCR Not Detected (Not Detect.); Human metapneumovirus PCR Not Detected (Not Detect.); Influenza A PCR Not Detected (Not Detect.); Influenza B PCR Not Detected (Not Detect.); Mycoplasma pneumoniae PCR Not Detected (Not Detect.); Parainfluenza 1 PCR Not Detected (Not Detect.); Parainfluenza 2 PCR Not Detected (Not Detect.); Parainfluenza 3 PCR Not Detected (Not Detect.); Parainfluenza 4 PCR Not Detected (Not Detect.); RSV PCR Not Detected (Not Detect.); Rhino/Enterovirus PCR Not Detected (Not Detect.); SARS-CoV-2 PCR Not Detected (Not Detect.)
[2021-08-28] MEDS: Nicotine 14 MG PATCH.TD24 TRANSDERMA (10:01)
--- NOTE | 2021-08-28 10:05 | P.HPHOSP_ITS ---
History of Present Illness Date of Service: 08/28/21 Chief Complaint: weakness, cough, and dyspnea 81yo F with advanced COPD and chronic hypoxia on 4L O2 via NC, HF with unknown EF, HTN, HLD, and depression/anxiety who lives with her daughter and was brought in by EMS for worsening weakness and dyspnea with productive cough over the past 1 week. She has been increasingly somnolent as well and at this point is b asically bed-bound. No fever/chills. No chest pain. No nausea or vomiting. No sick contacts. She continues to smoke, up to a pack a day, despite using oxygen. In the ED, she was afebrile with normal HR and RR. She had mild leukocytosis. Chest imaging showed left>right lower-lobe nodule infiltrates with bronchiectasis and bronchial wall thickening and mucus without obstruction. She was given cefepime and methylprednisolone. Related Data Review of Systems Review of Systems: Yes all other systems are reviewed and are negative ON LICENSE OF [facility] Medical History (Updated 08/28/21 @ 10:15 by Genesis Obregon MD) Acute bronchitis CHF (congestive heart failure) Chronic respiratory failure with hypoxia COPD (chronic obstructive pulmonary disease) HTN (hypertension) Hyperlipidemia Tobacco abuse Functional capacity: bed bound Pertinent family history: mother had CAD Surgical History (Updated 08/28/21 @ 10:13 by Genesis Obregon MD) History of cholecystectomy History of hysterectomy Social History Alcohol intake: never Patient Tobacco Use Status: Never used Tobacco Use of substances other than those prescribed or required for medical reasons: No Advance Directives: No Meds Allergies Allergy/AdvReac Type Severity Reaction Status Date / Time umeclidinium Allergy Unknown UNKOWN Verified 01/11/21 01:05 [From INCRUSE ELLIPTA] Active Medications: Current Medications Albuterol Sulfate (Albuterol Sulfate (0.083%) 2.5 Mg/3 Ml Vial.Neb) 2.5 mg INHALE Q6H PRN PRN Reason: Shortness Of Breath Atorvastatin Calcium (Atorvastatin Calcium 20 Mg Tablet) 20 mg PO DAILY RON Enoxaparin Sodium (Enoxaparin Sodium 40 Mg/0.4 Ml Syringe) 40 mg SUBCUT Q24H SC H Gabapentin (Gabapentin 100 Mg Capsule) 100 mg PO TID RON Doxycycline Hyclate 100 mg/ (Sodium Chloride) 250 mls @ 166.67 mls/hr IV Q12H [facility] Last Admin: 08/28/21 09:07 Dose: 166.67 mls/hr Documented by: Ceftriaxone Sodium 1 gm/ (Sodium Chloride) 50 mls @ 100 mls/hr IV Q24H [facility] Last Infusion: 08/28/21 09:07 Dose: Infused Documented by: Non-Formulary Medication (Arformoterol [Brovana]) 1 vial INHALE BID [facility] Non-Formulary Medication (Budesonide) 1 vial INHALE BID [facility] Non-Formulary Medication (Revefenacin [Yupelri]) 1 vial INHALE DAILY [facility] Pharmacy Consult (Consult Rx Perform Med Rec) 1 each MISCELLANE ONCE PRN PRN Reason: Consult order Sodium Chloride (0.9 % Sodium Chloride Flush 3 Ml Syringe) 3 ml IVFLUSH QSHIFT [facility] Torsemide (Torsemide 20 Mg Tablet) 20 mg PO BID [facility]; Protocol Venlafaxine HCl (Venlafaxine Hcl Er 75 Mg Cap.Er.24h) 75 mg PO DAILY [facility] Home Medications Medication Instructions Recorded Confirmed Last Taken Type albuterol sulfate 2.5 mg INHALATION Q6H PRN 08/28/21 08/28/21 Unknown History albuterol sulfate 90 mcg/actuation 2 puff INHALATION Q4-6H PRN 08/28/21 08/28/21 Unknown History aerosol inhaler arformoterol 15 mcg/2 mL solution 1 vial INHALATION BID 08/28/21 08/28/21 Unknown History for nebulization (Brovana) atorvastatin 20 mg tablet 1 tab PO DAILY 08/28/21 08/28/21 Unknown History budesonide 0.5 mg/2 mL suspension 1 vial INHALATION BID 08/28/21 08/28/21 Unknown History for nebulization clonazepam 0.5 mg tablet 1 tab PO TID PRN 08/28/21 08/28/21 Unknown History gabapentin 100 mg capsule 1 cap PO TID 08/28/21 08/28/21 Unknown History hydrocodone 5 mg-acetaminophen 325 1 tab PO Q6H PRN 08/28/21 08/28/21 Unknown History mg tablet revefenacin 175 mcg/3 mL solution 1 vial INHALATION DAILY 08/28/21 08/28/21 Unknown History for nebulization (Yupelri) torsemide 20 mg tablet 1 tab PO BID 08/28/21 08/28/21 Unknown History venlafaxine 75 mg capsule,extended 1 cap PO DAILY 08/28/21 08/28/21 Unknown History release 24 hr Physical Exam Vital Signs and Narrative: Vital Signs: Last Vital Signs Temp 98.2 F 08/28/21 05:17 Pulse 82 08/28/21 08:42 Resp 16 08/28/21 08:42 BP 123/81 08/28/21 08:42 Pulse Ox 98 08/28/21 08:42 Oxygen Flow Rate 4 08/28/21 05:17 Body Mass Index 25.4 Gen: somnolent but arousable HEENT: sclera anicteric, moist mucus membranes, left side of mouth drooping but per daughter this is chronic and occurs whenever she sleeps Neck: supple Lungs: diminished bilaterally; coarse crackles at bases bilaterally Heart: regular rate and rhythm, no murmurs Abd: soft, non-tender, non-distended Ext: no edema Skin: warm/well-perfused Neuro: somnolent but arousable, answers questions appropriately, no focal findings Psych: appropriate affect Results Labs CBC and Chem 7: 08/28/21 05:44 08/28/21 05:44 Labs: Laboratory Results - last 24 hr 08/28/21 08/28/21 08/28/21 05:44 05:44 05:44 MCV 100.5 H MCH 30.4 MCHC 30.2 L RDW 14.6 Plt Count 260 MPV 10.6 Immature Gran % (Auto) 0.4 Neut % (Auto) 72.6 Lymph % (Auto) 15.2 L [place] % (Auto) 9.4 Eos % (Auto) 2.0 Baso % (Auto) 0.4 Lymph # (Auto) 2.1 [place] # (Auto) 1.3 H Eos # (Auto) 0.3 Baso # (Auto) 0.1 Abs Immat Gran (auto) 0.05 H Absolute Neuts (auto) 9.8 H Absolute Nucleated RBC 0.000 Nucleated RBC % (auto) 0.0 PT INR VBG pH VBG pCO2 VBG pO2 VBG HCO3 VBG O2 Saturation VBG Base Excess Anion Gap 13 Estim Creat Clear Calc 36.0 Estimated GFR 42 Random Glucose 101 Lactic Acid Calcium 9.1 Magnesium 2.0 Total Bilirubin 0.5 AST 8 ALT < 6 Alkaline Phosphatase 107 D B-Natriuretic Peptide 49 Total Protein 6.7 Albumin 3.5 Procalcitonin COVID-19 ([facility]) COVID-19 Criptext 08/28/21 08/28/21 08/28/21 05:44 05:44 05:44 MCV MCH MCHC RDW Plt Count MPV Immature Gran % (Auto) Neut % (Auto) Lymph % (Auto) [place] % (Auto) Eos % (Auto) Baso % (Auto) Lymph # (Auto) [place] # (Auto) Eos # (Auto) Baso # (Auto) Abs Immat Gran (auto) Absolute Neuts (auto) Absolute Nucleated RBC Nucleated RBC % (auto) PT 11.8 INR 1.0 VBG pH VBG pCO2 VBG pO2 VBG HCO3 VBG O2 Saturation VBG Base Excess Anion Gap Estim Creat Clear Calc Estimated GFR Random Glucose Lactic Acid 1.2 Calcium Magnesium Total Bilirubin AST ALT Alkaline Phosphatase B-Natriuretic Peptide Total Protein Albumin Procalcitonin 0.04 COVID-19 ([facility]) COVID-Quant[place] 08/28/21 08/28/21 06:21 06:44 MCV MCH MCHC RDW Plt Count MPV Immature Gran % (Auto) Neut % (Auto) Lymph % (Auto) [place] % (Auto) Eos % (Auto) Baso % (Auto) Lymph # (Auto) [place] # (Auto) Eos # (Auto) Baso # (Auto) Abs Immat Gran (auto) Absolute Neuts (auto) Absolute Nucleated RBC Nucleated RBC % (auto) PT INR VBG pH 7.41 VBG pCO2 87 VBG pO2 38 VBG HCO3 55 H VBG O2 Saturation 56.0 VBG Base Excess 24.6 Anion Gap Estim Creat Clear Calc Estimated GFR Random Glucose Lactic Acid Calcium Magnesium Total Bilirubin AST ALT Alkaline Phosphatase B-Natriuretic Peptide Total Protein Albumin Procalcitonin COVID-19 ([facility]) Negative COVID-19 Criptext See Note Imaging Radiologist's Impressions: Impressions Chest X-Ray 08/28/21 05:23 IMPRESSION: Increased left basilar opacity could represent pneumonia. Follow-up to resolution. Chest CT 08/28/21 06:28 IMPRESSION: 1. Bilateral nodular infiltrates most pronounced in the lower lobes, left greater than right, with bronchiectasis and bronchial wall thickening. Scattered segmental and subsegmental airway mucus is seen without obstruction. These findings represent interval worsening from the previous study and likely represent an acute on chronic infectious/inflammatory process. Short-term monitoring with chest radiographs is recommended as clinically indicated. Assessment and Plan (1) COPD exacerbation: Status: Acute (2) Pneumonia: Status: Acute 81yo F with advanced COPD and chronic hypoxia on 4L O2 via NC, HF with unknown EF, HTN, HLD, and depression/anxiety presenting with worsening dyspnea and productive cough and weakness over the past week. # COPD exacerbation # PNA, PSI/PORT score 81 - admit to [facility], give IV steroids, standing/prn bronchodilators, ceftriaxone/doxycycline, follow BCx + UCx + PCT # hypercarbia - seems chronic/metabolically compensated. will discuss with Pulmonology role of BiPAP and acetazolamide in this situation # chronic hypoxia - continue O2 via NC # chronic HF, unknown EF - appears euvolemic; continue maintenance torsemide # HLD - continue statin # depression/anxiety - continue venlafaxine # VTE ppx - LMWH # code - per discussion with daughter, pt is DNR/DNI Quality Stroke Does the patient have a stroke diagnosis?: No VTE Prior VTE?: No VTE Risk Level:: Medical - moderate - high VTE Device Contraindication: N/A - Device Ordered VTE Drug Contraindication: N/A - Med Ordered
[2021-08-28] MEDS: Enoxaparin Sodium 40 MG/0.4 ML SYRINGE SUBCUT (10:53)
[2021-08-28] MEDS: methylPREDNISolone Sod Succ 40 MG/ML VIAL IVPUSH ×2 (10:53→20:59)
--- NOTE | 2021-08-28 11:42 | PM.CNPUL ---
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 Patient was deemed to to have COPD exacerbation secondary to community-acquired pneumonia. She was started on antibiotics, systemic glucocorticoids, and nebulized bronchodilators. Pulmonary evaluation was requested. Review of Systems Review of Systems: Yes Unobtainable due to mental condition [facility] Past Medical History Medical History (Updated 08/28/21 @ 11:50 by Polo Her MD) Acute bronchitis CHF (congestive heart failure) Chronic respiratory failure with hypoxia COPD (chronic obstructive pulmonary disease) HTN (hypertension) Hyperlipidemia Tobacco abuse Functional capacity: bed bound Surgical History Surgical History (Updated 08/28/21 @ 10:13 by Genesis Obregon MD) History of cholecystectomy History of hysterectomy Social History Social History Alcohol intake: never Patient Tobacco Use Status: Never used Tobacco Use of substances other than those prescribed or required for medical reasons: No Advance Directives: No Meds Allergies Allergy/AdvReac Type Severity Reaction Status Date / Time umeclidinium Allergy Unknown UNKOWN Verified 01/11/21 01:05 [From JAYCE MITCHELL] Active Medications: Current Medications Acetaminophen (Acetaminophen 325 Mg Tablet) 650 mg PO Q4H PRN PRN Reason: fever/pain Albuterol Sulfate (Albuterol Sulfate (0.083%) 2.5 Mg/3 Ml Vial.Neb) 2.5 mg INHALE Q2H PRN PRN Reason: Shortness Of Breath Albuterol/Ipratropium (Albuterol/Iprat 2.5/0.5mg 3 Ml Ampul.Neb) 3 ml INHALE RQ4H WHILE AWAKE [facility] Atorvastatin Calcium (Atorvastatin Calcium 20 Mg Tablet) 20 mg PO DAILY [facility] Enoxaparin Sodium (Enoxaparin Sodium 40 Mg/0.4 Ml Syringe) 40 mg SUBCUT Q24H RON Last Admin: 08/28/21 10:53 Dose: 40 mg Documented by: Gabapentin (Gabapentin 100 Mg Capsule) 100 mg PO TID RON Doxycycline Hyclate 100 mg/ (Sodium Chloride) 250 mls @ 166.67 mls/hr IV Q12H [facility] Last Infusion: 08/28/21 10:41 Dose: Infused Documented by: Ceftriaxone Sodium 1 gm/ (Sodium Chloride) 50 mls @ 100 mls/hr IV Q24H [facility] Last Infusion: 08/28/21 09:07 Dose: Infused Documented by: Methylprednisolone Sodium Succinate (Methylprednisolone Sod Succ 40 Mg/Ml Vial) 40 mg IVPUSH Q12H [facility] Last Admin: 08/28/21 10:53 Dose: 40 mg Documented by: Non-Formulary Medication (Arformoterol [Brovana]) 1 vial INHALE BID [facility] Non-Formulary Medication (Budesonide) 1 vial INHALE BID RON Non-Formulary Medication (Revefenacin [Yupelri]) 1 vial INHALE DAILY [facility] Ondansetron HCl (Ondansetron Hcl 4 Mg/2 Ml Vial) 4 mg IVPUSH Q4H PRN PRN Reason: nausea/vomiting Pharmacy Consult (Consult Rx Perform Med Rec) 1 each MISCELLANE ONCE PRN PRN Reason: Consult order Sodium Chloride (0.9 % Sodium Chloride Flush 3 Ml Syringe) 3 ml IVFLUSH QSHIFT RON Torsemide (Torsemide 20 Mg Tablet) 20 mg PO BID [facility]; Protocol Venlafaxine HCl (Venlafaxine Hcl Er 75 Mg Cap.Er.24h) 75 mg PO DAILY [facility] Home Medications Medication Instructions Recorded Confirmed Last Taken Type albuterol sulfate 2.5 mg INHALATION Q6H PRN 08/28/21 08/28/21 Unknown History albuterol sulfate 90 mcg/actuation 2 puff INHALATION Q4-6H PRN 08/28/21 08/28/21 Unknown History aerosol inhaler arformoterol 15 mcg/2 mL solution 1 vial INHALATION BID 08/28/21 08/28/21 Unknown History for nebulization (Brovana) atorvastatin 20 mg tablet 1 tab PO DAILY 08/28/21 08/28/21 Unknown History budesonide 0.5 mg/2 mL suspension 1 vial INHALATION BID 08/28/21 08/28/21 Unknown History for nebulization clonazepam 0.5 mg tablet 1 tab PO TID PRN 08/28/21 08/28/21 Unknown History gabapentin 100 mg capsule 1 cap PO TID 08/28/21 08/28/21 Unknown History hydrocodone 5 mg-acetaminophen 325 1 tab PO Q6H PRN 08/28/21 08/28/21 Unknown History mg tablet revefenacin 175 mcg/3 mL solution 1 vial INHALATION DAILY 08/28/21 08/28/21 Unknown History for nebulization (Rickeyi) torsemide 20 mg tablet 1 tab PO BID 08/28/21 08/28/21 Unknown History venlafaxine 75 mg capsule,extended 1 cap PO DAILY 08/28/21 08/28/21 Unknown History release 24 hr Physical Exam Vital Signs: Vital Signs: Last Vital Signs Temp 97.8 F 08/28/21 10:59 Pulse 92 08/28/21 10:59 Resp 18 08/28/21 10:59 BP 106/53 L 08/28/21 10:59 Pulse Ox 93 08/28/21 10:59 Oxygen Flow Rate 4 08/28/21 05:17 Body Mass Index 25.4 Const: General: no acute distress and lethargic (Arousable) Nutritional Appearance: cachectic Orientation/consciousness: lethargic (Arousable) Eyes: Sclerae: sclerae normal EOM: EOMs intact bilaterally Neck: Neck: Yes no lymphadenopathy, Yes trachea midline and Yes supple Resp: Effort & Inspection: normal respiratory effort and no respiratory distress Auscultation: clear to auscultation bilaterally Cardio: Rate: regular rate Rhythm: regular rhythm Heart sounds: no gallops, no murmurs and no rubs GI: Palpation (GI): Soft to palpation and Other GI palpation findings present ( Nontender) Auscultation: normal bowel sounds Extrem: General: Yes no pedal edema, No clubbing and No cyanosis Results Laboratory Findings CBC and BMP: 08/28/21 05:44 08/28/21 05:44 ABG, PT/INR, D-dimer: PT/INR, D-dimer PT 11.8 SEC (9.9-13.0) 08/28/21 05:44 INR 1.0 (0.9-1.1) 08/28/21 05:44 Abnormal lab findings: Abnormal Labs 08/28/21 08/28/21 08/28/21 05:44 05:44 06:21 WBC 13.5 H RBC 4.18 L MCV 100.5 H MCHC 30.2 L Lymph % (Auto) 15.2 L Dare # (Auto) 1.3 H Abs Immat Gran (auto) 0.05 H Absolute Neuts (auto) 9.8 H VBG HCO3 55 H Potassium 3.0 L Chloride 92 L Carbon Dioxide 43 H* Assessment and Plan (1) Chronic respiratory failure with hypoxia: Status: Acute (2) CAP (community acquired pneumonia): Status: Acute Impression: 81-year-old lady with underlying advanced COPD 4 L supplemental oxygen dependent, chronic CO2 retention admitted with worsening dyspnea secondary to community-acquired pneumonia/COPD exacerbation and treated for such. Recommendation: No indication for BiPAP support as patient chronic CO2 retention is compensated. Agree with coverage for community-acquired pneumonia and COPD exacerbation of with azithromycin/ceftriaxone, Solu-Medrol, and nebulized bronchodilators. Maintain O2 sat in 88-92% range, no higher than 93% secondary to underlying CO2 retention. Consider substituting torsemide, at least partially, with acetazolamide 250 IV b.i.d. for 6 doses. Procedures Date of Service Date of Service: 08/28/21
[2021-08-28] MEDS: Albuterol/Iprat 2.5/0.5MG 3 ML AMPUL.NEB INHALE ×2 (12:06→19:40)
--- NOTE | 2021-08-28 12:49 | MHC.CM.PN ---
CM MET WITH PT AND DAUGHTER WHO WAS AT BEDSIDE PT RESIDES IN A HOUSE WITH HER DAUGHTER WHO IS ALSO HER [employer]OCKST[employer]ER PT HAS HAD NO OUTSIDE SERVICES SINCE START OF PANDEMIC HOWEVER HER DAUGHTER ASKS THAT A REFERRAL BE SENT FOR [facility] PT HAS SEVERAL TYPES OF DME INCLUDING A WHEEL CHAIR, HAND RAILS, TUB BENCH AND HOSPITAL BED PT ALSO HAS HOME OXYGEN AND A NEBULIZER THAT HER DAUGHTER REPORTS SHE DOES NOT USE MUCH SHE SHOULD PT HAS A HCP ON FILE IMM DELIVERED CURRENT DC PLAN IS HOME WITH VNA DAUGHTER REQUESTING EITHER [facility] OR [facility] PT WILL NEED BLS TRANSPORT
[2021-08-28] MEDS: Gabapentin 100 MG CAPSULE PO ×2 (15:07→20:59)
[2021-08-28] MEDS: 0.9 % Sodium Chloride Flush 3 ML SYRINGE IVFLUSH (20:59)
[2021-08-28] MEDS: Torsemide 20 MG TABLET PO (20:59)
[2021-08-29] VITALS (9 sets, daily range): BP systolic 107–143; BP diastolic 55–64; PULSE 58–89; RESP 18–19; TEMP 36.4–37.2; O2SAT 90–97
[2021-08-29 03:27] LABS: Appearance Urine CLEAR; Color Urine YELLOW; Glucose Urine UA NEG (NEG); Leukocyte Esterase Urine NEG (NEG); Nitrite Urine NEG (NEG); Urine Blood NEG (NEG); Urine Ketones NEG (NEG); Urine Protein NEG (NEG-TRACE)
[2021-08-29 06:10] LABS: Hematocrit 38.4 % (37-47); Hemoglobin 11.8 g/dl (12.0-16.0); Mean Corpuscular HGB Conc 30.7 g/dl (31.0-35.0); Mean Corpuscular Hemoglobin 29.8 pg (27.0-33.0); Mean Platelet Volume 10.9 fL (9.4-12.3); Platelet Count 245 X10*3/uL (160-400); Red Blood Count 3.96 X10*6/uL (4.20-5.50); Red Cell Distribution Width 14.7 % (11.0-16.0); White Blood Count 10.8 X10*3/uL (4.8-10.8)
[2021-08-29 06:11] LABS: Venous Blood Gas Refer to POC result
[2021-08-29 06:11] LABS: VBG Base Excess 21.3 mmol/L; VBG HCO3 49 mmol/L (22-26); VBG pCO2 72 mmHg; VBG pH 7.44 (7.32-7.43); VBG pO2 61 mmHg
[2021-08-29 06:43] LABS: Anion Gap 10 (12-20); Chloride 97 mmol/L (96-108); Potassium 3.7 mmol/L (3.3-5.1); Sodium 145 mmol/L (135-145)
[2021-08-29 06:44] LABS: Blood Urea Nitrogen 20 mg/dL (9-16); Calcium 8.7 mg/dL (8.4-10.2); Creatinine Clr Calc Pharmacy 39.5; Estimated Glomerular Filt Rate 46; Glucose Random 142 mg/dL (60-115)
[2021-08-29 07:02] LABS: Carbon Dioxide 42 mmol/L (22-29)
--- NOTE | 2021-08-29 07:57 | HE.PHANOTE ---
Messaged the RN Lorraine to check with the patients family about bringing in the non-formulary medications. Will follow up. Skylar Gotti, YinkaD [phone]
[2021-08-29] MEDS: Albuterol/Iprat 2.5/0.5MG 3 ML AMPUL.NEB INHALE ×2 (08:01→11:24)
[2021-08-29] MEDS: 0.9 % Sodium Chloride Flush 3 ML SYRINGE IVFLUSH ×3 (08:13→19:43)
[2021-08-29] MEDS: Venlafaxine HCl ER 75 MG CAP.ER.24H PO (08:14)
[2021-08-29] MEDS: Atorvastatin Calcium 20 MG TABLET PO (08:14)
[2021-08-29] MEDS: Gabapentin 100 MG CAPSULE PO ×3 (08:14→19:39)
[2021-08-29] MEDS: Doxycycline Hyclate 100 MG in 0.9 % Sodium Chloride 250 ML 166.67 MG IV ×2 (08:15→19:39)
--- NOTE | 2021-08-29 10:10 | P.PNIM_ITS ---
Subjective Subjective Date of Service: 08/29/21 Interval History: more awake today dyspnea improved coughing no fever no chest pain very weak Review of Systems Review of Systems: Yes all other systems are reviewed and are negative Physical Exam Vital Signs: Vital Signs: Last Vital Signs Temp 98.0 F 08/29/21 07:35 Pulse 79 08/29/21 09:10 Resp 18 08/29/21 07:35 BP 127/55 L 08/29/21 07:35 Pulse Ox 97 08/29/21 07:35 Oxygen Flow Rate 4 08/28/21 05:17 Body Mass Index 25.4 Gen: weak, chronically ill-appearing HEENT: sclera anicteric, moist mucus membranes Neck: supple Lungs: diminished bilaterally; inspiratory crackles and rhonchi L>R base Heart: regular rate and rhythm, no murmurs Abd: soft, non-tender, non-distended Ext: no edema Skin: warm/well-perfused Neuro: alert and oriented x3, no focal findings Psych: appropriate affect Objective Data Active Medications Acetaminophen (Acetaminophen 325 Mg Tablet) 650 mg PO Q4H PRN PRN Reason: fever/pain Acetazolamide (Acetazolamide Sodium 500 Mg Vial) 250 mg IVPUSH TID [facility] TO [facility] Stop: 08/30/21 21:01 Albuterol Sulfate (Albuterol Sulfate (0.083%) 2.5 Mg/3 Ml Vial.Neb) 2.5 mg INHALE Q2H PRN PRN Reason: Shortness Of Breath Albuterol/Ipratropium (Albuterol/Iprat 2.5/0.5mg 3 Ml Ampul.Neb) 3 ml INHALE RQ4H WHILE AWAKE [facility] Last Admin: 08/29/21 08:01 Dose: 3 ml Documented by: MIGUEL ANGEL Atorvastatin Calcium (Atorvastatin Calcium 20 Mg Tablet) 20 mg PO DAILY [facility] Last Admin: 08/29/21 08:14 Dose: 20 mg Documented by: FLETCHER Enoxaparin Sodium (Enoxaparin Sodium 40 Mg/0.4 Ml Syringe) 40 mg SUBCUT Q24H [facility] Last Admin: 08/28/21 10:53 Dose: 40 mg Documented by: BRIGIDA Gabapentin (Gabapentin 100 Mg Capsule) 100 mg PO TID [facility] Last Admin: 08/29/21 08:14 Dose: 100 mg Documented by: FLETCHER Doxycycline Hyclate 100 mg/ (Sodium Chloride) 250 mls @ 166.67 mls/hr IV Q12H [facility] Last Infusion: 08/29/21 10:03 Dose: 166.67 mls/hr Documented by: FLETCHER Ceftriaxone Sodium 1 gm/ (Sodium Chloride) 50 mls @ 100 mls/hr IV Q24H [facility] Last Infusion: 08/28/21 09:07 Dose: 0 mls/hr Documented by: BRIGIDA Methylprednisolone Sodium Succinate (Methylprednisolone Sod Succ 40 Mg/Ml Vial) 40 mg IVPUSH Q12H [facility] Last Admin: 08/28/21 20:59 Dose: 40 mg Documented by: ANTOIC Non-Formulary Medication (Arformoterol [Brovana]) 1 vial INHALE BID [facility] Non-Formulary Medication (Budesonide) 1 vial INHALE BID [facility] Non-Formulary Medication (Revefenacin [Yupelri]) 1 vial INHALE DAILY [facility] Ondansetron HCl (Ondansetron Hcl 4 Mg/2 Ml Vial) 4 mg IVPUSH Q4H PRN PRN Reason: nausea/vomiting Pharmacy Consult (Consult Rx Perform Med Rec) 1 each MISCELLANE ONCE PRN PRN Reason: Consult order Sodium Chloride (0.9 % Sodium Chloride Flush 3 Ml Syringe) 3 ml IVFLUSH QSHIFT [facility] Last Admin: 08/29/21 08:13 Dose: 3 ml Documented by: FLETCHER Torsemide (Torsemide 20 Mg Tablet) 20 mg PO BID [facility]; Protocol Last Admin: 08/28/21 20:59 Dose: 20 mg Documented by: DENISE Venlafaxine HCl (Venlafaxine Hcl Er 75 Mg Cap.Er.24h) 75 mg PO DAILY [facility] Last Admin: 08/29/21 08:14 Dose: 75 mg Documented by: FLETCHER Labs CBC & Chem 7: 08/29/21 05:58 08/29/21 05:58 Labs: Laboratory Results - last 24 hr 08/28/21 08/29/21 08/29/21 08:58 03:13 05:58 MCV 97.0 MCH 29.8 MCHC 30.7 L RDW 14.7 Plt Count 245 MPV 10.9 Absolute Nucleated RBC 0.000 Nucleated RBC % (auto) 0.0 VBG pH VBG pCO2 VBG pO2 VBG HCO3 VBG O2 Saturation VBG Base Excess Anion Gap Estim Creat Clear Calc Estimated GFR Random Glucose Calcium Urine Color YELLOW Urine Appearance CLEAR Urine pH 6.0 Ur Specific Handley 1.010 Urine Protein NEG Urine Glucose (UA) NEG Urine Ketones NEG Urine Blood NEG Urine Nitrite NEG Ur Leukocyte Esterase NEG Respiratory Panel Menendez See Note Adenovirus (Rapid PCR) Not Detected B.pert (TEM-PCR) Not Detected B.parapertussis DNA PCR Not Detected C. pneumoniae DNA (PCR) Not Detected Coronavirus OC43 (PCR) Not Detected Coronavirus HKU1 (PCR) Not Detected Coronavirus 229E (PCR) Not Detected Coronavirus NL63 (PCR) Not Detected Human Metapneumovir PCR Not Detected Influenza A (RT-PCR) Not Detected Influenza B (RT-PCR) Not Detected M. pneumoniae (PCR) Not Detected Parainfluenza 1 (PCR) Not Detected Parainfluenza 2 (PCR) Not Detected Parainfluenza 3 (PCR) Not Detected Parainfluenza 4 (PCR) Not Detected RSV (PCR) Not Detected Entero/Rhino (PCR) Not Detected SARS-CoV-2 RNA (RT-PCR) Not Detected 08/29/21 08/29/21 05:58 06:05 MCV MCH MCHC RDW Plt Count MPV Absolute Nucleated RBC Nucleated RBC % (auto) VBG pH 7.44 H VBG pCO2 72 VBG pO2 61 VBG HCO3 49 H VBG O2 Saturation 84.0 VBG Base Excess 21.3 Anion Gap 10 L Estim Creat Clear Calc 39.5 Estimated GFR 46 Random Glucose 142 H Calcium 8.7 Urine Color Urine Appearance Urine pH Ur Specific Handley Urine Protein Urine Glucose (UA) Urine Ketones Urine Blood Urine Nitrite Ur Leukocyte Esterase Respiratory Panel Menendez Adenovirus (Rapid PCR) B.pert (TEM-PCR) B.parapertussis DNA PCR C. pneumoniae DNA (PCR) Coronavirus OC43 (PCR) Coronavirus HKU1 (PCR) Coronavirus 229E (PCR) Coronavirus NL63 (PCR) Human Metapneumovir PCR Influenza A (RT-PCR) Influenza B (RT-PCR) M. pneumoniae (PCR) Parainfluenza 1 (PCR) Parainfluenza 2 (PCR) Parainfluenza 3 (PCR) Parainfluenza 4 (PCR) RSV (PCR) Entero/Rhino (PCR) SARS-CoV-2 RNA (RT-PCR) Microbiology Microbiology Results: Microbiology 08/28/21 05:44 Blood Culture - Final Blood - Arterial Coag negative Staphylococcus 08/28/21 05:44 Blood Culture - Preliminary Blood - Arterial No growth after 24 hours. Assessment and Plan (1) CAP (community acquired pneumonia): Status: Acute (2) COPD exacerbation: Status: Acute (3) Chronic respiratory failure with hypoxia: Status: Acute Assessment and Plan: hospital d#2 81yo F with advanced COPD and chronic hypoxia on 4L O2 via NC, HF with unknown EF, HTN, HLD, and depression/anxiety presenting with worsening dyspnea and productive cough and weakness over the past week admitted for COPD exacerbation + PNA # COPD exacerbation # PNA - d#2 ceftriaxone/doxycycline, follow BCx + UCx + PCT + check urinary antigen tests - d#2 methylprednisoloine, also nebulized bronchodilators # chronic hypercarbic and hypoxic respiratory failure - continue O2 via NC, goal SaO2 88-92% - metabolically compensated; no BiPAP or CPAP needede; will give 2d of acetazolamide IV # chronic HF, unknown EF - appears euvolemic; maintenance torsemide after acetazolamide # HLD - continue statin # depression/anxiety - continue venlafaxine # VTE ppx - LMWH # dispo - PT consult - CM consult; pt's daughter is having difficulty taking care of pt Quality Stroke Does the patient have a stroke diagnosis?: No VTE Prior VTE?: No VTE Risk Level:: Medical - moderate - high VTE Device Contraindication: N/A - Device Ordered VTE Drug Contraindication: N/A - Med Ordered
[2021-08-29] MEDS: acetaZOLAMIDE sodium 500 MG VIAL 250 MG IVPUSH ×3 (10:12→19:42)
[2021-08-29] MEDS: cefTRIAXone sodium 1 GM in 0.9 % Sodium Chloride 50 ML IV (10:12)
[2021-08-29] MEDS: Enoxaparin Sodium 40 MG/0.4 ML SYRINGE SUBCUT (10:12)
[2021-08-29] MEDS: methylPREDNISolone Sod Succ 40 MG/ML VIAL IVPUSH ×2 (10:12→19:44)
--- NOTE | 2021-08-29 10:39 | MHC.CDI.CONC ---
CDI Concurrent Query Documentation Clarification: PHYSICIAN'S DOCUMENTATION REQUEST Date of Query: 08/29/21 1040 Patient Name: Luisana Morel Admit Date: 08/28/21 Dear Doctor, A review of the medical record indicates additional documentation may be needed. Please review below and update the documentation accordingly. Risk Factors/Clinical Indicators/Treatments LAB FINDINGS: potassium 3.0 IV potassium chloride once Based on the above, could you clarify in the Progress Notes the appropriate diagnosis, if significant, that supports the above abnormalities and additional evaluation, monitoring, and/or treatment rendered: Labs indicate a diagnosis of (please specify) Other (please specify) Unable to determine Use of terms such as suspected, likely, concern for, or probable (associated with a specific diagnosis that is being evaluated, monitored, or treated as if it exists) are acceptable and can be coded in the inpatient setting, when documented at the time of discharge. Thank you, Chrystal Alfred [facility], CDIS Extension: [phone] Please use your independent medical judgment in providing your response. THIS QUERY IS PART OF THE PERMANENT MEDICAL RECORD Provider Response: Other Other Diagnosis: hypokalemia
--- NOTE | 2021-08-29 12:57 | MHC.CM.PN ---
Per ROUNDS discussion, Patient is not yet medically cleared for dc (IV Diamox, IV Ceftriaxone, IV Doxycycline, IV Solu Medrol). Home/resume family care and new [facility] is the goal and CM WILL FOLLOW FOR possible need to adjust the dc plan.
--- NOTE | 2021-08-29 13:19 | PC.NURSE ---
Patient confused to place and time. also noted intermittent confused speech. Dr. Obregon made aware. Had 8 beat run of VTACH and returned to [facility]. Asymptomatic. made aware as well. no new orders
[2021-08-29 13:34] LABS: Magnesium 1.9 mg/dL (1.6-2.6)
[2021-08-30] VITALS (12 sets, daily range): BP systolic 102–137; BP diastolic 61–77; PULSE 61–689; RESP 18–20; TEMP 36–36.9; O2SAT 91–95
[2021-08-30] MEDS: Albuterol/Iprat 2.5/0.5MG 3 ML AMPUL.NEB INHALE ×4 (07:33→20:44)
[2021-08-30 07:34] LABS: Anion Gap 12 (12-20); Blood Urea Nitrogen 33 mg/dL (9-16); Calcium 8.3 mg/dL (8.4-10.2); Carbon Dioxide 36 mmol/L (22-29); Chloride 99 mmol/L (96-108); Creatinine Clr Calc Pharmacy 32.4; Estimated Glomerular Filt Rate 37; Glucose Random 120 mg/dL (60-115); Potassium 3.1 mmol/L (3.3-5.1); Sodium 144 mmol/L (135-145)
[2021-08-30 07:57] LABS: Procalcitonin 0.05 ng/mL
--- NOTE | 2021-08-30 10:36 | P.PNIM_ITS ---
Subjective Subjective Date of Service: 08/30/21 Interval History: 8 beats NSVT yesterday around noon, asymptomatic breathing improved no fever Review of Systems Review of Systems: Yes all other systems are reviewed and are negative Physical Exam Vital Signs: Vital Signs: Last Vital Signs Temp 96.9 F 08/30/21 07:44 Pulse 78 08/30/21 07:44 Resp 18 08/30/21 07:44 BP 126/71 08/30/21 07:44 Pulse Ox 95 08/30/21 07:44 Oxygen Flow Rate 4 08/28/21 05:17 Body Mass Index 25.4 Gen: NAD HEENT: sclera anicteric, moist mucus membranes Neck: supple Lungs: diminished bilaterally without adventitious sounds Heart: regular rate and rhythm, no murmurs Abd: soft, non-tender, non-distended Ext: no edema Skin: warm/well-perfused Neuro: alert and oriented x3, no focal findings Psych: appropriate affect Objective Data Active Medications Acetaminophen (Acetaminophen 325 Mg Tablet) 650 mg PO Q4H PRN PRN Reason: fever/pain Acetazolamide (Acetazolamide Sodium 500 Mg Vial) 250 mg IVPUSH TID [facility] Stop: 08/30/21 21:01 Last Admin: 08/29/21 19:42 Dose: 250 mg Documented by: MARIVEL Albuterol Sulfate (Albuterol Sulfate (0.083%) 2.5 Mg/3 Ml Vial.Neb) 2.5 mg INHALE Q2H PRN PRN Reason: Shortness Of Breath Albuterol/Ipratropium (Albuterol/Iprat 2.5/0.5mg 3 Ml Ampul.Neb) 3 ml INHALE RQ4H WHILE AWAKE [facility] Last Admin: 08/30/21 07:33 Dose: 3 ml Documented by: JOÃO Atorvastatin Calcium (Atorvastatin Calcium 20 Mg Tablet) 20 mg PO DAILY [facility] Last Admin: 08/29/21 08:14 Dose: 20 mg Documented by: FLETCHER Enoxaparin Sodium (Enoxaparin Sodium 40 Mg/0.4 Ml Syringe) 40 mg SUBCUT Q24H [facility] Last Admin: 08/29/21 10:12 Dose: 40 mg Documented by: FLETCHER Gabapentin (Gabapentin 100 Mg Capsule) 100 mg PO TID [facility] Last Admin: 08/29/21 19:39 Dose: 100 mg Documented by: MARIVEL Doxycycline Hyclate 100 mg/ (Sodium Chloride) 250 mls @ 166.67 mls/hr IV Q12H [facility] Last Infusion: 08/29/21 21:36 Dose: 0 mls/hr Documented by: MARIVEL Ceftriaxone Sodium 1 gm/ (Sodium Chloride) 50 mls @ 100 mls/hr IV Q24H [facility] Last Infusion: 08/29/21 10:50 Dose: 100 mls/hr Documented by: FLETCHER Methylprednisolone Sodium Succinate (Methylprednisolone Sod Succ 40 Mg/Ml Vial) 40 mg IVPUSH Q12H [facility] Last Admin: 08/29/21 19:44 Dose: 40 mg Documented by: MARIVEL Non-Formulary Medication (Arformoterol [Brovana]) 1 vial INHALE BID [facility] Non-Formulary Medication (Budesonide) 1 vial INHALE BID [facility] Non-Formulary Medication (Revefenacin [Yupelri]) 1 vial INHALE DAILY [facility] Ondansetron HCl (Ondansetron Hcl 4 Mg/2 Ml Vial) 4 mg IVPUSH Q4H PRN PRN Reason: nausea/vomiting Pharmacy Consult (Consult Rx Perform Med Rec) 1 each MISCELLANE ONCE PRN PRN Reason: Consult order Sodium Chloride (0.9 % Sodium Chloride Flush 3 Ml Syringe) 3 ml IVFLUSH QSHIFT [facility] Last Admin: 08/29/21 19:43 Dose: 3 ml Documented by: MARIVEL Torsemide (Torsemide 20 Mg Tablet) 20 mg PO BID [facility]; Protocol Last Admin: 08/28/21 20:59 Dose: 20 mg Documented by: ANTOIC Venlafaxine HCl (Venlafaxine Hcl Er 75 Mg Cap.Er.24h) 75 mg PO DAILY [facility] Last Admin: 08/29/21 08:14 Dose: 75 mg Documented by: FLETCHER Labs CBC & Chem 7: 08/29/21 05:58 08/30/21 06:46 Labs: Laboratory Results - last 24 hr 08/29/21 08/30/21 08/30/21 05:58 06:46 06:46 Anion Gap 12 Estim Creat Clear Calc 32.4 Estimated GFR 37 Random Glucose 120 H Calcium 8.3 L Magnesium 1.9 Procalcitonin 0.05 Microbiology Microbiology Results: Microbiology 08/28/21 05:44 Blood Culture - Preliminary Blood - Arterial Coag negative Staphylococcus 08/28/21 05:44 Blood Culture - Final Blood - Arterial Coag negative Staphylococcus Assessment and Plan (1) CAP (community acquired pneumonia): Status: Acute (2) COPD exacerbation: Status: Acute (3) Chronic respiratory failure with hypoxia: Status: Acute Assessment and Plan: hospital d#3 81yo F with advanced COPD and chronic hypoxia on 4L O2 via NC, HF with unknown EF, HTN, HLD, and depression/anxiety presenting with worsening dyspnea and productive cough and weakness over the past week admitted for COPD exacerbation + PNA # COPD exacerbation # PNA - d#3/ ceftriaxone/doxycycline - BCx 2/2 coag-neg Staph, likely contaminant - PCT low - RV negative - urinary antigens pending - d#3 methylprednisolone, also nebulized bronchodilators # hypoK - replete, recheck in am # NSVT - replete K, check TTE # chronic hypercarbic and hypoxic respiratory failure - continue O2 via NC, goal SaO2 88-92% - metabolically compensated; no BiPAP or CPAP needede; giving 2d of acetazolamide IV # chronic HF, unknown EF - appears euvolemic; maintenance torsemide after acetazolamide # HLD - continue statin # depression/anxiety - continue venlafaxine # VTE ppx - LMWH # dispo - likely home tomorrow, where her daughter is her primary caregiver Quality Stroke Does the patient have a stroke diagnosis?: No VTE Prior VTE?: No VTE Risk Level:: Medical - moderate - high VTE Device Contraindication: N/A - Device Ordered VTE Drug Contraindication: N/A - Med Ordered
[2021-08-30 11:07] LABS: VBG Base Excess 14.1 mmol/L; VBG HCO3 37 mmol/L (22-26); VBG pCO2 39 mmHg; VBG pH 7.58 (7.32-7.43); VBG pO2 116 mmHg
[2021-08-30 11:07] LABS: Venous Blood Gas Refer to POC result
[2021-08-30] MEDS: Doxycycline Hyclate 100 MG in 0.9 % Sodium Chloride 250 ML 166.67 MG IV ×2 (11:45→19:18)
[2021-08-30] MEDS: cefTRIAXone sodium 1 GM in 0.9 % Sodium Chloride 50 ML IV (11:46)
[2021-08-30] MEDS: 0.9 % Sodium Chloride Flush 3 ML SYRINGE IVFLUSH ×3 (11:47→21:04)
[2021-08-30] MEDS: Enoxaparin Sodium 40 MG/0.4 ML SYRINGE SUBCUT (11:47)
[2021-08-30] MEDS: acetaZOLAMIDE sodium 500 MG VIAL 250 MG IVPUSH ×3 (11:47→21:04)
[2021-08-30] MEDS: Gabapentin 100 MG CAPSULE PO ×3 (11:48→21:04)
[2021-08-30] MEDS: Atorvastatin Calcium 20 MG TABLET PO (11:48)
[2021-08-30] MEDS: methylPREDNISolone Sod Succ 40 MG/ML VIAL IVPUSH ×2 (11:48→22:11)
[2021-08-30] MEDS: Venlafaxine HCl ER 75 MG CAP.ER.24H PO (11:48)
[2021-08-30] MEDS: Potassium Chloride ER 20 MEQ TAB.ER.PRT 40 MEQ PO (11:48)
--- NOTE | 2021-08-30 15:00 | CA_ITS ---
Transthoracic Echocardiogram Patient (Last, First, Middle): Luisana Morel L Gender: Female Date of : 1940 Age: 81 Procedure Date: 08/30/2021 Procedure Type: Transthoracic E[place]ocardiogram [place] [facility] [place]: 167.64 cm Weight: 71.22 kg BSA: 1.80 m2 Heart Rate: bpm BP: 119 / 62 mmHg Engine Mechanic: VH/CP Referring MD: Genesis Obregon MD Symptoms: NSVT Study Quality: Fair ECG Rhythm: Sinus with extra beats Conclusions: - The left ventricular systolic function is low normal. The visually estimated ejection fraction is between 50-55%. - E/E prime ratio is between 8 and 15 consistent with indeterminate filling pressures. - The basal inferior segment is akinetic. - Normal right ventricular cavity size and systolic function. - There is no evidence of pericardial effusion. Findings Left Ventricle Normal left ventricular cavity size. There is normal left ventricular wall thickness. The left ventricular systolic function is low normal. The visually estimated ejection fraction is between 50-55%. There is evidence of regional wall motion abnormalities. Abnormal diastolic function is noted. Spectral Doppler is indicative of an impaired relaxation filling pattern. E/E prime ratio is between 8 and 15 consistent with indeterminate filling pressures. Wall Motion Rest Echo Findings The basal inferior segment is akinetic. Right Ventricle Normal right ventricular cavity size and systolic function. Atria Both atria are normal in size. Aortic Valve Normal aortic valve structure and function. There is no aortic valve stenosis. There is no aortic valve regurgitation. Mitral Valve Normal mitral valve structure and function. There is no mitral valve regurgitation. There is no mitral valve stenosis. Pulmonic Valve The pulmonic valve is likely normal. Tricuspid Valve Normal tricuspid valve structure. There is no tricuspid valve regurgitation. Tricuspid regurgitation envelope is inadequate for calculation of right ventricular systolic pressure. Normal right atrial pressure. Great Vessels All visible segments of the aorta are normal in size. The pulmonary artery was not well visualized. Venous The inferior vena cava is normal in size and collapses greater than 50% with inspiration. Pericardium/Pleural There is no evidence of pericardial effusion. Prior Study Comparison No prior study available for comparison. Measurements 2D Linear Measurements IVSd: 0.88 0.6-0.9/0.6-1.0 cm LVIDd: 5.15 3.9-5.3/4.2-5.9 cm LVIDd Index: 2.86 2.4-3.2/2.2-3.1 cm/m2 LVIDs: 3.79 2.0-3.6 cm LVPWd: 0.87 0.7-1.1 cm Ao Root: 3.30 2.1-3.5 cm LA Diam: 3.90 2.7-3.8/3.0-4.0 cm LAIDs Index: 2.17 1.5-2.3 cm/m2 LV Mass: 198.85 67-162/88-224 g LV Mass Index: 110.47 43-95/49-115 g/m2 LVOT Diam: 2.00 3.0+(-)1.3 cm 2D Systolic Function EF 4C: 50.30 >55% EF 2C: 40.60 >55% EF BiP: 46.40 >55% Mitral Valve MV Pk E: 0.57 MV PK A: 0.74 MV Decel Time: 280.00 E/A: 0.80 E'Lateral: 7.72 E'Medial: 5.77 E/E' Med: 9.90 E/E' Lat: 7.40 PHT: 80.00 MVA PHT: 2.75 Decel [place]: 2.11 Aortic Valve AoV Pk Dexter: 1.19 AoV Mn Dexter: 0.87 AoV VTI: 0.25 AoV Pk Grad: 6.00 Aov Mn Grad: 3.00 ELIGIO Cont.VTI: 2.56 LVOT LVOT Pk Dexter: 1.04 LVOT Mn Dexter: 0.71 LVOT VTI: 0.21 LVOT Pk Grad: 4.00 LVOT Mn Grad: 2.00 LVOT Diam: 2.00 LVOT Area: 3.14 Diastolic Function MV Pk E: 0.57 MV Pk A: 0.74 E/A: 0.80 E'Medial: 5.77 E/E' Med: 9.90 E' Laterial: 7.72 E/E' Lat: 7.40 Great Vessels Aorta Ao Root-2D: 3.30 2.0-3.7 cm Ao Asc: 3.30 2.1-3.4 cm Updated in Other Vendor System with Status of Final Jasmeet Swartz MD electronically signed on 08/30/2021 1:41:39 PM with status of Final
--- NOTE | 2021-08-30 15:42 | MHC.CM.PN ---
revisied pt and dgter again we discussed dc planning and again wnt over referral process for [facility] and reiterated that this services does not start immediately
--- NOTE | 2021-08-30 17:52 | PC.NURSE ---
Addendum entered by Sandra Christopher RN 08/30/21 18:23: Patient to be started on 12.5 mg PO Metoprolo daily and Cardio consult ordered. Original Note: Patient having ectopy on telemetry. Question burst of SVT or rapid A.fib, no P waves, HR 160s briefly but returned back to sinus rhythm. Patient also noted to have an episode of multifocal PVCs and a 12 beat run of VTACH. Patient asymptomatic and denying chest pain, pressure, or palpitations. Patient appears to be resting comfortably in recliner and does not appear to be in any distress. Strips posted by community outreach worker. Images of strips forward to with above event description. Awaiting reply from MD at this time. Remains on telemetry monitoring, will monitor.
[2021-08-30] MEDS: Metoprolol Succinate ER 12.5 MG HALFTAB.ER.24H PO (18:33)
--- NOTE | 2021-08-30 19:22 | PC.NURSE ---
Pt O2 sat 95% on 2L NC, decreased oxygen to 1L at this time. Will monitor.
[2021-08-31] VITALS (10 sets, daily range): BP systolic 108–136; BP diastolic 58–96; PULSE 70–104; RESP 18–20; TEMP 36.6–37.2; O2SAT 92–97
[2021-08-31 06:58] LABS: Anion Gap 14 (12-20); Blood Urea Nitrogen 33 mg/dL (9-16); Calcium 8.5 mg/dL (8.4-10.2); Carbon Dioxide 30 mmol/L (22-29); Chloride 101 mmol/L (96-108); Creatinine Clr Calc Pharmacy 33.6; Estimated Glomerular Filt Rate 38; Glucose Random 106 mg/dL (60-115); Potassium 3.1 mmol/L (3.3-5.1); Sodium 142 mmol/L (135-145)
[2021-08-31 07:04] LABS: Hematocrit 37.9 % (37-47); Hemoglobin 11.7 g/dl (12.0-16.0); Mean Corpuscular HGB Conc 30.9 g/dl (31.0-35.0); Mean Corpuscular Hemoglobin 29.6 pg (27.0-33.0); Mean Corpuscular Volume 95.9 fL (80-98); Mean Platelet Volume 11.4 fL (9.4-12.3); Platelet Count 283 X10*3/uL (160-400); Red Blood Count 3.95 X10*6/uL (4.20-5.50); Red Cell Distribution Width 15.5 % (11.0-16.0); White Blood Count 9.8 X10*3/uL (4.8-10.8)
[2021-08-31] MEDS: Albuterol/Iprat 2.5/0.5MG 3 ML AMPUL.NEB INHALE ×2 (07:13→20:15)
[2021-08-31] MEDS: 0.9 % Sodium Chloride Flush 3 ML SYRINGE IVFLUSH ×3 (08:20→21:07)
[2021-08-31] MEDS: Venlafaxine HCl ER 75 MG CAP.ER.24H PO (08:21)
[2021-08-31] MEDS: Gabapentin 100 MG CAPSULE PO ×3 (08:21→21:06)
[2021-08-31] MEDS: Torsemide 20 MG TABLET PO ×2 (08:21→21:06)
[2021-08-31] MEDS: Atorvastatin Calcium 20 MG TABLET PO (08:21)
[2021-08-31] MEDS: cefTRIAXone sodium 1 GM in 0.9 % Sodium Chloride 50 ML IV (08:21)
[2021-08-31] MEDS: Metoprolol Succinate ER 12.5 MG HALFTAB.ER.24H PO (08:21)
[2021-08-31 08:57] LABS: Magnesium 1.9 mg/dL (1.6-2.6)
[2021-08-31] MEDS: Enoxaparin Sodium 40 MG/0.4 ML SYRINGE SUBCUT (09:31)
[2021-08-31] MEDS: Potassium Chloride ER 20 MEQ TAB.ER.PRT 40 MEQ PO (09:31)
[2021-08-31] MEDS: methylPREDNISolone Sod Succ 40 MG/ML VIAL IVPUSH (09:32)
[2021-08-31] MEDS: Doxycycline Hyclate 100 MG in 0.9 % Sodium Chloride 250 ML 166.67 MG IV ×2 (09:32→23:00)
[2021-08-31] MEDS: Potassium Chloride/H20 10 MEQ/100 ML PIGGYBACK 100 MEQ IV ×4 (11:20→14:36)
--- NOTE | 2021-08-31 12:44 | MHC.CM.PN ---
per rounds pt may be dcd thurs dc remains home with dgter and hvbns plus a referral to [facility]
--- NOTE | 2021-08-31 13:29 | P.PNIM_ITS ---
Subjective Subjective Date of Service: 08/31/21 Interval History: Brief NSVT and PAT last night, without symptoms Breathing has improved Review of Systems Review of Systems: Yes all other systems are reviewed and are negative Physical Exam Vital Signs: Vital Signs: Last Vital Signs Temp 98.2 F 08/31/21 11:52 Pulse 83 08/31/21 11:52 Resp 20 08/31/21 11:52 BP 127/96 H 08/31/21 11:52 Pulse Ox 92 08/31/21 11:52 Body Mass Index 25.4 Gen: NAD on 1L O2 via NC HEENT: sclera anicteric, moist mucus membranes Neck: supple Lungs: diminished bilaterally without adventitious sounds Heart: regular rate and rhythm, no murmurs Abd: soft, non-tender, non-distended Ext: no edema Skin: warm/well-perfused Neuro: alert and oriented x3, no focal findings Psych: appropriate affect Objective Data Active Medications Acetaminophen (Acetaminophen 325 Mg Tablet) 650 mg PO Q4H PRN PRN Reason: fever/pain Albuterol Sulfate (Albuterol Sulfate (0.083%) 2.5 Mg/3 Ml Vial.Neb) 2.5 mg INHALE Q2H PRN PRN Reason: Shortness Of Breath Albuterol/Ipratropium (Albuterol/Iprat 2.5/0.5mg 3 Ml Ampul.Neb) 3 ml INHALE RQ4H WHILE AWAKE [facility] [place] Last Admin: 08/31/21 11:27 Dose: Not Given Documented by: DINAH Non-Admin Reason: Patient Refused Atorvastatin Calcium (Atorvastatin Calcium 20 Mg Tablet) 20 mg PO DAILY [facility] [place] Last Admin: 08/31/21 08:21 Dose: 20 mg Documented by: IAN Enoxaparin Sodium (Enoxaparin Sodium 40 Mg/0.4 Ml Syringe) 40 mg SUBCUT Q24H [facility] [place] Last Admin: 08/31/21 09:31 Dose: 40 mg Documented by: IAN Gabapentin (Gabapentin 100 Mg Capsule) 100 mg PO TID [facility] [place] Last Admin: 08/31/21 08:21 Dose: 100 mg Documented by: IAN Doxycycline Hyclate 100 mg/ (Sodium Chloride) 250 mls @ 166.67 mls/hr IV Q12H [facility] [place] Last Infusion: 08/31/21 11:21 Dose: 0 mls/hr Documented by: IAN Ceftriaxone Sodium 1 gm/ (Sodium Chloride) 50 mls @ 100 mls/hr IV Q24H [facility] [place] Last Infusion: 08/31/21 09:41 Dose: 0 mls/hr Documented by: IAN Potassium Chloride () 10 meq in 100 mls @ 100 mls/hr IV Q1H [facility] [place] Stop: 08/31/21 15:29 Last Admin: 08/31/21 12:21 Dose: 100 mls/hr Documented by: IAN Methylprednisolone Sodium Succinate (Methylprednisolone Sod Succ 40 Mg/Ml Vial) 40 mg IVPUSH Q12H [facility] [place] Last Admin: 08/31/21 09:32 Dose: 40 mg Documented by: IAN Metoprolol Succinate (Metoprolol Succinate Er 12.5 Mg Halftab.Er.24h) 12.5 mg PO DAILY [facility] [place]; Protocol Last Admin: 08/31/21 08:21 Dose: 12.5 mg Documented by: IAN Non-Formulary Medication (Arformoterol [Brovana]) 1 vial INHALE BID [facility] [place] Non-Formulary Medication (Budesonide) 1 vial INHALE BID [facility] [place] Non-Formulary Medication (Revefenacin [Yupelri]) 1 vial INHALE DAILY [facility] [place] Ondansetron HCl (Ondansetron Hcl 4 Mg/2 Ml Vial) 4 mg IVPUSH Q4H PRN PRN Reason: nausea/vomiting Pharmacy Consult (Consult Rx Perform Med Rec) 1 each MISCELLANE ONCE PRN PRN Reason: Consult order Sodium Chloride (0.9 % Sodium Chloride Flush 3 Ml Syringe) 3 ml IVFLUSH QSHIFT [facility] [place] Last Admin: 08/31/21 08:20 Dose: 3 ml Documented by: IAN Torsemide (Torsemide 20 Mg Tablet) 20 mg PO BID [facility] [place]; Protocol Last Admin: 08/31/21 08:21 Dose: 20 mg Documented by: IAN Venlafaxine HCl (Venlafaxine Hcl Er 75 Mg Cap.Er.24h) 75 mg PO DAILY [facility] [place] Last Admin: 08/31/21 08:21 Dose: 75 mg Documented by: IAN Labs CBC & Chem 7: 08/31/21 06:05 08/31/21 06:05 Labs: Laboratory Results - last 24 hr 08/31/21 08/31/21 06:05 06:05 MCV 95.9 MCH 29.6 MCHC 30.9 L RDW 15.5 Plt Count 283 MPV 11.4 Absolute Nucleated RBC 0.000 Nucleated RBC % (auto) 0.0 Anion Gap 14 Estim Creat Clear Calc 33.6 Estimated GFR 38 Random Glucose 106 Calcium 8.5 Magnesium 1.9 08/30/21 TTE - The left ventricular systolic function is low normal.? The ? ? visually estimated ejection fraction is between 50-55%.? - E/E prime ratio is between 8 and 15 consistent with? indeterminate filling pressures. ? - The basal inferior segment is akinetic.? - Normal right ventricular cavity size and systolic function.? ? - There is no evidence of pericardial effusion.? Microbiology Microbiology Results: Microbiology 08/28/21 05:44 Blood Culture - Final Blood - Arterial Staphylococcus hominis ssp yesica 08/28/21 05:44 Blood Culture - Final Blood - Arterial Staphylococcus hominis ssp yesica Assessment and Plan (1) CAP (community acquired pneumonia): Status: Acute (2) COPD exacerbation: Status: Acute (3) Chronic respiratory failure with hypoxia: Status: Acute Assessment and Plan: hospital d#4 81yo F with advanced COPD and chronic hypoxia on 4L O2 via NC, HF with unknown EF, HTN, HLD, and depression/anxiety presenting with worsening dyspnea and productive cough and weakness over the past week admitted for COPD exacerbation + PNA developed NSVT + PAT # NSVT # PAT - Cardiology consult - start low-dose metoprolol succinate - replete K # COPD exacerbation # PNA - d#4/5 ceftriaxone/doxycycline - BCx 2/2 coag-neg Staph, likely contaminant - PCT low - RVP negative - urinary antigens pending - d#4/ methylprednisolone, also nebulized bronchodilators # hypoK - replete, recheck in am # chronic hypercarbic and hypoxic respiratory failure - continue O2 via NC, goal SaO2 88-92% - metabolically compensated; no BiPAP or CPAP needede; gave 2d of IV acetazolamide # chronic HFpEF - appears euvolemic; maintenance torsemide # HLD - continue statin # depression/anxiety - continue venlafaxine # VTE ppx - LMWH # dispo - likely home + VNA tomorrow;her daughter is her primary caregiver Quality Stroke Does the patient have a stroke diagnosis?: No VTE Prior VTE?: No VTE Risk Level:: Medical - moderate - high VTE Device Contraindication: N/A - Device Ordered VTE Drug Contraindication: N/A - Med Ordered
--- NOTE | 2021-08-31 13:57 | W.MHC.F2F ---
Service Date Service Date: 08/31/21 Encounter Date of encounter: 08/31/21 Reasons for Services Reason for custodial: medication management, medication treatment and other (respiratory assessment) Reason for physical therapy: home safety and mobility, therapeutic exercises, gait/transfer training, assess need for DME, ADL training and energy conservation MD Overseeing Care: Iveth Rain Homebound: Leaving the home is medically contraindicated at this time without the asist of a device and/or another person due th the listed conditions above and below. Reason homebound: unsteady gait / fall risk, shortness of breath with minimal effort and weakness related to hospital stay Certification: Based on the above findings, I certify that this patient is confined to the home and needs intermittent custodial care, physical therapy and/or speech therapy, or continues to need occupational therapy. The patient is under my care, and I have initiated the establishment of the plan of care. The patient will be followed by a physician who will periodically review the plan of care.
--- NOTE | 2021-08-31 14:05 | P.CONCA_ITS ---
History of Present Illness History of Present Illness Date of Service: 08/31/21 Chief complaint: NSVT, atrial tachycardia Narrative: Pleasant 81-year-old female with background history of tobacco abuse, hyperlipidemia and COPD who presented with pneumonia. She is improving with antibiotics. She had short run of nonsustained VT which was approximately 4-5 beats as well as run of atrial tachycardia. She has no symptoms. She is denying palpitation and or dizziness. She is saying she has no chest pains or shortness of breath now. She was coughing yesterday but feels that things are improving. [facility] Past Medical History Medical History (Updated 08/31/21 @ 14:15 by Jasmeet Swartz MD) Acute bronchitis CHF (congestive heart failure) Chronic respiratory failure with hypoxia COPD (chronic obstructive pulmonary disease) HTN (hypertension) Hyperlipidemia Tobacco abuse Functional capacity: bed bound Surgical History Surgical History History of cholecystectomy History of hysterectomy Social History Social History Household Members: Family Housing: House Do you presently have visiting nurse or other home services: No Alcohol intake: never Patient Tobacco Use Status: Current everyday Tobacco user service: No Current occupational status: retired Meds Allergies Allergy/AdvReac Type Severity Reaction Status Date / Time umeclidinium Allergy Unknown UNKOWN Verified 01/11/21 01:05 [From INCRUSE ELLIPTA] Active Medications: Current Medications Acetaminophen (Acetaminophen 325 Mg Tablet) 650 mg PO Q4H PRN PRN Reason: fever/pain Albuterol Sulfate (Albuterol Sulfate (0.083%) 2.5 Mg/3 Ml Vial.Neb) 2.5 mg INHALE Q2H PRN PRN Reason: Shortness Of Breath Albuterol/Ipratropium (Albuterol/Iprat 2.5/0.5mg 3 Ml Ampul.Neb) 3 ml INHALE RQ4H WHILE AWAKE [facility] Last Admin: 08/31/21 11:27 Dose: Not Given Documented by: Atorvastatin Calcium (Atorvastatin Calcium 20 Mg Tablet) 20 mg PO DAILY [facility] Last Admin: 08/31/21 08:21 Dose: 20 mg Documented by: Enoxaparin Sodium (Enoxaparin Sodium 40 Mg/0.4 Ml Syringe) 40 mg SUBCUT Q24H [facility] Last Admin: 08/31/21 09:31 Dose: 40 mg Documented by: Gabapentin (Gabapentin 100 Mg Capsule) 100 mg PO TID [facility] Last Admin: 08/31/21 08:21 Dose: 100 mg Documented by: Doxycycline Hyclate 100 mg/ (Sodium Chloride) 250 mls @ 166.67 mls/hr IV Q12H [facility] Last Infusion: 08/31/21 11:21 Dose: Infused Documented by: Ceftriaxone Sodium 1 gm/ (Sodium Chloride) 50 mls @ 100 mls/hr IV Q24H [facility] Last Infusion: 08/31/21 09:41 Dose: Infused Documented by: Potassium Chloride () 10 meq in 100 mls @ 100 mls/hr IV Q1H [facility] Stop: 08/31/21 15:29 Last Admin: 08/31/21 13:33 Dose: 100 mls/hr Documented by: Methylprednisolone Sodium Succinate (Methylprednisolone Sod Succ 40 Mg/Ml Vial) 40 mg IVPUSH Q12H [facility] Last Admin: 08/31/21 09:32 Dose: 40 mg Documented by: Metoprolol Succinate (Metoprolol Succinate Er 12.5 Mg Halftab.Er.24h) 12.5 mg PO DAILY [facility]; Protocol Last Admin: 08/31/21 08:21 Dose: 12.5 mg Documented by: Non-Formulary Medication (Arformoterol [Brovana]) 1 vial INHALE BID [facility] Non-Formulary Medication (Budesonide) 1 vial INHALE BID [facility] Non-Formulary Medication (Revefenacin [Yupelri]) 1 vial INHALE DAILY [facility] Ondansetron HCl (Ondansetron Hcl 4 Mg/2 Ml Vial) 4 mg IVPUSH Q4H PRN PRN Reason: nausea/vomiting Pharmacy Consult (Consult Rx Perform Med Rec) 1 each MISCELLANE ONCE PRN PRN Reason: Consult order Sodium Chloride (0.9 % Sodium Chloride Flush 3 Ml Syringe) 3 ml IVFLUSH QSHIFT [facility] Last Admin: 08/31/21 08:20 Dose: 3 ml Documented by: Torsemide (Torsemide 20 Mg Tablet) 20 mg PO BID [facility]; Protocol Last Admin: 08/31/21 08:21 Dose: 20 mg Documented by: Venlafaxine HCl (Venlafaxine Hcl Er 75 Mg Cap.Er.24h) 75 mg PO DAILY [facility] Last Admin: 08/31/21 08:21 Dose: 75 mg Documented by: Home Medications Medication Instructions Recorded Confirmed Last Taken Type albuterol sulfate 2.5 mg INHALATION Q6H PRN 08/28/21 08/28/21 Unknown History albuterol sulfate 90 mcg/actuation 2 puff INHALATION Q4-6H PRN 08/28/21 08/28/21 Unknown History aerosol inhaler arformoterol 15 mcg/2 mL solution 1 vial INHALATION BID 08/28/21 08/28/21 Unknown History for nebulization (Fior) atorvastatin 20 mg tablet 1 tab PO DAILY 08/28/21 08/28/21 Unknown History budesonide 0.5 mg/2 mL suspension 1 vial INHALATION BID 08/28/21 08/28/21 Unknown History for nebulization clonazepam 0.5 mg tablet 1 tab PO TID PRN 08/28/21 08/28/21 Unknown History gabapentin 100 mg capsule 1 cap PO TID 08/28/21 08/28/21 Unknown History hydrocodone 5 mg-acetaminophen 325 1 tab PO Q6H PRN 08/28/21 08/28/21 Unknown History mg tablet revefenacin 175 mcg/3 mL solution 1 vial INHALATION DAILY 08/28/21 08/28/21 Unknown History for nebulization (Lina) torsemide 20 mg tablet 1 tab PO BID 08/28/21 08/28/21 Unknown History venlafaxine 75 mg capsule,extended 1 cap PO DAILY 08/28/21 08/28/21 Unknown History release 24 hr Physical Exam Vital Signs: Vital Signs: Last Vital Signs Temp 98.2 F 08/31/21 11:52 Pulse 83 08/31/21 11:52 Resp 20 08/31/21 11:52 BP 127/96 H 08/31/21 11:52 Pulse Ox 92 08/31/21 11:52 Oxygen Flow Rate 4 08/28/21 05:17 Body Mass Index 25.4 GENERAL APPEARANCE: in no acute distress, pleasant. NECK: no carotid bruit, no jugular venous distention. SKIN: no suspicious lesions, warm and dry. HEART: no murmurs, regular rate and rhythm. LUNGS: clear to auscultation bilaterally. ABDOMEN: soft, nontender. EXTREMITIES: no edema. PERIPHERAL PULSES: equal. NEUROLOGIC: No gross deficits, AAO X 3 Results Labs and Meds Result diagrams: 08/31/21 06:05 08/31/21 06:05 Lab results: Laboratory Results - last 24 hr 08/31/21 08/31/21 06:05 06:05 WBC 9.8 RBC 3.95 L Hgb 11.7 L Hct 37.9 MCV 95.9 MCH 29.6 MCHC 30.9 L RDW 15.5 Plt Count 283 MPV 11.4 Absolute Nucleated RBC 0.000 Nucleated RBC % (auto) 0.0 Sodium 142 Potassium 3.1 L Chloride 101 Carbon Dioxide 30 H Anion Gap 14 BUN 33 H Creatinine 1.33 Estim Creat Clear Calc 33.6 Estimated GFR 38 Random Glucose 106 Calcium 8.5 Magnesium 1.9 Assessment and Plan (1) NSVT (nonsustained ventricular tachycardia): Status: Acute (2) Atrial tachycardia: Status: Acute Pleasant 81-year-old female who is here with pneumonia and is getting antibiotics. She has been noticed to have short run of nonsustained VT as well as atrial tachycardia. She has been asymptomatic. Echocardiography is showing basal inferior akinesis pointing toward potential underlying coronary disease. She is denying any symptoms act now. I think we should try low-dose beta-linnette on her. If she tolerates beta-linnette without wheezing then the dose can be titrated depending on her blood pressure. No further recommendations. Thank you for allowing me to participate in the care of your patient. Please feel free to contact me if you have any questions. Procedures Date of Service Date of Service: 08/31/21
[2021-08-31] MEDS: clonazePAM 0.5 MG TABLET PO (14:46)
[2021-09-01] VITALS (10 sets, daily range): BP systolic 110–131; BP diastolic 52–77; PULSE 45–91; RESP 16–20; TEMP 35.8–37.1; O2SAT 94–98
[2021-09-01 06:27] LABS: Anion Gap 15 (12-20); Blood Urea Nitrogen 36 mg/dL (9-16); Calcium 8.5 mg/dL (8.4-10.2); Carbon Dioxide 24 mmol/L (22-29); Chloride 107 mmol/L (96-108); Creatinine Clr Calc Pharmacy 31.7; Estimated Glomerular Filt Rate 36; Glucose Random 106 mg/dL (60-115); Magnesium 2.1 mg/dL (1.6-2.6); Sodium 142 mmol/L (135-145)
[2021-09-01] MEDS: Albuterol/Iprat 2.5/0.5MG 3 ML AMPUL.NEB INHALE ×3 (07:37→20:23)
[2021-09-01] MEDS: Torsemide 20 MG TABLET PO ×2 (09:39→20:05)
[2021-09-01] MEDS: Metoprolol Succinate ER 12.5 MG HALFTAB.ER.24H PO (09:39)
[2021-09-01] MEDS: Atorvastatin Calcium 20 MG TABLET PO (09:39)
[2021-09-01] MEDS: Venlafaxine HCl ER 75 MG CAP.ER.24H PO (09:39)
[2021-09-01] MEDS: Gabapentin 100 MG CAPSULE PO ×3 (09:39→20:05)
[2021-09-01] MEDS: 0.9 % Sodium Chloride Flush 3 ML SYRINGE IVFLUSH (09:40)
[2021-09-01] MEDS: cefTRIAXone sodium 1 GM in 0.9 % Sodium Chloride 50 ML IV (09:40)
[2021-09-01] MEDS: Doxycycline Hyclate 100 MG in 0.9 % Sodium Chloride 250 ML 166.67 MG IV (11:33)
[2021-09-01] MEDS: methylPREDNISolone Sod Succ 40 MG/ML VIAL IVPUSH ×2 (11:33)
[2021-09-01] MEDS: Enoxaparin Sodium 40 MG/0.4 ML SYRINGE SUBCUT (11:34)
--- NOTE | 2021-09-01 11:48 | PM.DS ---
DS: Providers Provider Date of Service: 09/01/21 Date of admission: 08/28/21 10:01 Date of discharge: 09/01/21 Primary care physician: Unknown Physician Consults: 08/28/21 10:09 Consult to Pulmonology Routine Consulting Provider: [facility] Pul[facility]ology [facility] Reason for consultation: advanced COPD, hypercarbia [compensated] 08/30/21 18:18 Consult to Cardiology Routine Consulting Provider: Jasmeet Swartz Reason for consultation: SVT Attending physician on discharge: Oumar Sanchez Discharging clinician: Mable Carroll DS: Diagnosis Discharge Diagnosis (1) CAP (community acquired pneumonia): Status: Acute (2) COPD exacerbation: Status: Acute (3) NSVT (nonsustained ventricular tachycardia): Status: Acute (4) Atrial tachycardia: Status: Acute (5) Chronic respiratory failure with hypoxia: Status: Acute DS: Summary Hospital Course Hospital Course: 81yo F with advanced COPD and chronic hypoxia on 4L O2 via NC, HF with unknown EF, HTN, HLD, and depression/anxiety presenting with worsening dyspnea and productive cough and weakness over the past week admitted for COPD exacerbation + PNA course complicated by NSVT + PAT COPD exacerbation and PNA. Patient was treated with IV ceftriaxone and doxycycline. Respiratory pathogen panel was checked and was negative. Urinary antigens for Legionella and mycoplasma were checked and are pending at the time of discharge. She was treated with IV Solu-Medrol as well as nebulized bronchodilators. Her respiratory status improved. Her leukocytosis resolved and she is stable for discharge home with VNA. Her BCx returned 2/2 coag-neg Staph, contaminant. She be discharged home to complete course of antibiotics as well as a prednisone taper. chronic hypercarbic and hypoxic respiratory failure She was seen in consultation by pulmonology. Continue O2 via NC, goal SaO2 88-92%. metabolically compensated; no BiPAP or CPAP needed; treated with 2d of IV acetazolamide. She should follow up with pulmonology as outpatient. NSVT/PAT She was noted to have brief episodes of PAT and NSVT. Seen by Cardiology and started on low dose metoprolol. no further episodes of atrial tachycardia or NSVT. Outpatient follow-up with Cardiology is recommended. Time Spent with Patient Time attestation: Total time spent providing and/or coordinating discharge services: Discharge coordination time: Greater than 30 minutes Quality: Stroke Does the patient have a stroke diagnosis?: No Physical Exam Vital Signs: Vital Signs: Last Vital Signs Temp 97.2 F 09/01/21 07:28 Pulse 91 09/01/21 09:39 Resp 17 09/01/21 07:28 BP 121/52 L 09/01/21 09:39 Pulse Ox 95 09/01/21 07:28 Oxygen Flow Rate 4 08/28/21 05:17 Body Mass Index 25.4 DS: Data Data Completed and Pending Labs on day of discharge: Laboratory Results - last 24 hr 09/01/21 05:31 Sodium 142 Potassium 4.0 D Chloride 107 Carbon Dioxide 24 Anion Gap 15 BUN 36 H Creatinine 1.41 H Estim Creat Clear Calc 31.7 Estimated GFR 36 Random Glucose 106 Calcium 8.5 Magnesium 2.1 Discharge Plan Discharge Patient Disposition: Home Health Service Discharge Diagnosis: COPD exacerbation, pneumonia, NSVT/SVT Referrals: Jose HARLEY [Outside] - 1 Week Jasmeet Swartz MD [Physician] - 2 Weeks Iveth Rain NP [Nurse Practitioner] - 1 Week Steve Nassar MD [Physician] - 2 Weeks Physician,Russel J [Primary Care Provider] - 1 Week Discharge Medications: New metoprolol succinate [Toprol XL] 25 mg tablet extended release 24 hr 12.5 mg PO DAILY 30 Days Qty: 15 RF: 0 doxycycline hyclate 100 mg capsule 100 mg PO BID 3 Days Qty: 6 RF: 0 cefuroxime axetil 500 mg tablet 500 mg PO BID 3 Days Qty: 6 RF: 0 prednisone 20 mg tablet 10 mg PO DAILY Qty: 30 RF: 0 Continued venlafaxine 75 mg capsule,extended release 24hr 1 cap PO DAILY RF: 0 atorvastatin 20 mg tablet 1 tab PO DAILY RF: 0 torsemide 20 mg tablet 1 tab PO BID RF: 0 albuterol sulfate 2.5 mg /3 mL (0.083 %) solution for nebulization 2.5 mg inhalation Q6H PRN (Reason: Shortness Of Breath) RF: 0 hydrocodone-acetaminophen 5-325 mg tablet 1 tab PO Q6H PRN (Reason: Pain) RF: 0 clonazepam 0.5 mg tablet 1 tab PO TID PRN (Reason: Anxiety) RF: 0 budesonide 0.5 mg/2 mL suspension for nebulization 1 vial inhalation BID RF: 0 gabapentin 100 mg capsule 1 cap PO TID RF: 0 albuterol sulfate 90 mcg/actuation HFA aerosol inhaler 2 puff inhalation Q4-6H PRN (Reason: Shortness Of Breath) RF: 0 arformoterol [Brovana] 15 mcg/2 mL solution for nebulization 1 vial inhalation BID RF: 0 Yupelri 175 mcg/3 mL solution for nebulization 1 vial inhalation DAILY RF: 0 Discharge Orders: Discharge Order (Routine); Ordered 09/01/21 Ordered By: Mable Carroll Diet: advance to usual diet Activity on Discharge: As tolerated Stand Alone Forms: Patient Portal Discharge page Activity Restrictions/Additional Instructions: Goal SaO2 is 88-92%. Do not let SaO2 rise above 93% Care Plan Goals: Stay healthy and out of the hospital Health Concerns: COPD Pneumonia NSVT/PAT Plan of Treatment: Finish course of antibiotics and prednisone as prescribed Start taking metoprolol as prescribed Call to Schedule to follow-up appointment with the highway inspector Call to schedule follow-up appointment with casting operator helper Keep oxygen saturation between 88-92% as above Assessment: see discharge summary
[2021-09-01] MEDS: clonazePAM 0.5 MG TABLET PO (20:05)
[2021-09-03 18:46] LABS: Strep Pneumo Ag urine Not Detected (Not Detected)
[2021-09-09 19:36] LABS: Legionella Ag Urine Not Detected (Not Detected)
== END 2021-09-01 21:30 | disposition home health service (06) | DRG 190 ==
LOC: HO.ED 06:35 → HO.EDOVER 10:12 → HO.IMC 15:55
PROVIDERS: Admitting Provider Family Medicine; Emergency Provider Student in an Organized Health Care Education/Training Program; Visit Provider Physician Assistant Medical
DX: J44.0 Chronic obstructive pulmonary disease with (acute) lower respiratory infection (principal); J18.9 Pneumonia, unspecified organism; I47.1 Supraventricular tachycardia; J96.12 Chronic respiratory failure with hypercapnia; J96.11 Chronic respiratory failure with hypoxia; I50.32 Chronic diastolic (congestive) heart failure; J44.1 Chronic obstructive pulmonary disease with (acute) exacerbation; E87.6 Hypokalemia; E78.5 Hyperlipidemia, unspecified; F41.9 Anxiety disorder, unspecified; F32.9 Major depressive disorder, single episode, unspecified; Z20.822 Contact with and (suspected) exposure to COVID-19; F17.210 Nicotine dependence, cigarettes, uncomplicated; Z99.81 Dependence on supplemental oxygen; Z71.6 Tobacco abuse counseling; Z79.899 Other long term (current) drug therapy
CPT/HCPCS: 36415; 71045; 71250; 80048; 80053; 81003; 82803; 83605; 83735; 83880; 84145; 85025; 85027; 85610; 87040; 87077; 87147; 87186; 87205; 87449; 87633; 87635; 87899; 93005; 93306; 94640; 96374; 96375; 97110; 97116; 97162; 99285; J0692; J0696; J1650; J2920; J2930